=== PATIENT | female | born 1955 | race Caucasian/White ===

== ENCOUNTER 2020-01-15 15:00 | Emergency (ER) | payer OTHER, SELFPAY ==
[2020-01-15 15:06] VITALS: BP 156/84; PULSE 73; RESP 16; TEMP 36.7; O2SAT 95
[2020-01-15 15:30] LABS: Abs Immature Grans 0.01 10^3/uL (0.0-0.06); Absolute Basophil Count 0.02 10^3/uL (0.0-0.2); Absolute Eosinophil Count 0.05 10^3/uL (0.0-0.7); Absolute Lymphocyte Count 1.34 10^3/uL (1.2-3.4); Absolute Monocyte Count 0.47 10^3/uL (0.1-0.8); Absolute Neutrophil Count 3.81 10^3/uL (1.2-6.7); Basophils % 0.4; Eosinophils % 0.9; HCT 44.4 % (36.0-46.0); HGB 15.2 g/dL (11.2-15.7); Immature Grans % 0.2; Lymphocytes % 23.5; MCH 33.6 pg (27.0-33.0); MCHC 34.2 % (32.0-36.0); MPV 10.2 fL (8.0-11.0); Monocytes % 8.2; Neutrophils % 66.8; Nucleated RBC 0 %; Platelet Count 231 10^3/uL (130-400); RBC 4.53 10^6/uL (3.93-5.22); RDW 11.6 % (11.7-14.6); RDW-SD 41.9 fL
--- NOTE | 2020-01-15 15:52 | ED.GENADUL_ITS ---
Discharge Plan Disposition Patient Disposition: HOME Condition: Stable Discharge Details Chief Complaint: Nausea/Vomit/Diar Clinical Impression: Nausea Primary Care Provider: Sharon Delarosa ED Provider: Josi Cook Home Meds and New Rx's Prescriptions: New promethazine 25 mg tablet 25 mg PO TID PRN (Reason: nausea and vomiting) Qty: 10 RF: 0 No Action aspirin [Aspir-81] 81 MG tablet,delayed release (DR/EC) 1 tab PO DAILY RF: 0 triamterene-hydrochlorothiazid [Dyazide] 1 EACH capsule 1 cap PO DAILY RF: 0 estradiol 1 MG tablet 1 tab PO DAILY RF: 0 levothyroxine 125 MCG tablet 1 tab PO DAILY RF: 0 tiotropium bromide [Spiriva with HandiHaler] 30 CAP capsule, w/inhalation device 1 cap Inhalation DAILY RF: 0 L.acidoph, paracasei,B. lactis 1 EACH capsule 1 cap PO DAILY RF: 0 ondansetron HCl [Zofran] 4 mg Tablet 4 mg PO Q8H PRNRF: 0 Discharge Instructions Instructions: Acute Nausea and Vomiting (ED) Additional Instructions: Follow up with primary care provider in 3-5 days. Return to ED sooner if any worsening or concerns. Increase oral fluids. Take medications as prescribed. Stand Alone Forms: Work Release Referrals: Sharon Delarosa [Primary Care Provider] - Discharge Data Discharge Date/Time-TO BE ENTERED AT DEPARTURE: 01/15/20 16:45 Medical Decision Making <Josi Cook - Last Filed: 01/16/20 09:17> 64-year-old female presents to the ER with complaint of nausea since Tuesday. She has been intermittently getting Zofran from her place of work. She does have a history of a fundoplication done years ago for GERD. She denies any actual vomiting. Did have one episode of diarrhea on Tuesday. Denies any hematochezia. No fever no chills. No abdominal pain. Work-up was ordered including CBC and CMP which are largely within normal limits. Patient remained stable and afebrile throughout stay. She has no abdominal pain no chest pain no shortness of breath no complaints of fever or current diarrhea. Her only complaint at this time is nausea. At this time CT was not ordered due to patient's absence of pain or any concerning physical exam findings. Discussed this with patient and she agrees to not have a CT at this time. Patient was given 1 L normal saline, Zofran 4 mg IV, and 10 mg of Reglan IV in department prior to discharge. This improved her symptoms somewhat. Patient was given a prescription for 25 mg of Phenergan p.o. which patient states she has taken before and has helped. Discussed strict return instructions, verbalized understanding. Discussed to return if any onset of pain, worsening nausea vomiting, fever chills, diarrhea or any concerns. Patient verbalized understanding. <NATALIE Hinds - Last Filed: 01/22/20 16:56> my name was entered to the chart in error. HPI <Josi Cook - Last Filed: 01/16/20 09:17> General Mode of arrival: ambulatory . Date/Time Provider Initiated Documentation: 01/15/20 15:14 . Limitations to Documentation: no limitations . Information obtained by: patient . HPI Narrative: 64-year-old female presents to the ER with complaint of nausea since Tuesday. She has been intermittently getting Zofran from her place of work. She does have a history of a fundoplication done years ago for GERD. She denies any actual vomiting. Did have one episode of diarrhea on Tuesday. Denies any hematochezia. No fever no chills. No abdominal pain. Related Data Home Medications Medication Instructions Recorded Confirmed dominic Garnica B. lactis 1 cap PO DAILY 09/01/15 01/15/20 aspirin [Aspir 81] 1 tab PO DAILY 09/01/15 01/15/20 estradiol 1 tab PO DAILY 09/01/15 01/15/20 levothyroxine 1 tab PO DAILY 09/01/15 01/15/20 tiotropium bromide [Spiriva 1 cap INHALATION DAILY 09/01/15 09/01/15 Handihaler] triamterene-hydrochlorothiazid 1 cap PO DAILY 09/01/15 09/01/15 [Dyazide 37.5-25 Capsule] ondansetron HCl [Zofran] 4 mg PO Q8H PRN 01/15/20 01/15/20 promethazine 25 mg PO TID PRN #10 tab 01/15/20 Previous Rx's Medication Instructions Recorded promethazine 25 mg PO TID PRN #10 tab 01/15/20 Allergies Allergy/AdvReac Type Severity Reaction Status Date / Time lisinopril AdvReac Unknown Nausea Unverified 09/01/15 19:16 General Stated Complaint: Nausea/Vomit/Diar STEPHANIE: 4 Review of Systems <Josi Cook - Last Filed: 01/16/20 09:17> Narrative: Constitutional: Negative for weight loss, alert and oriented, well groomed, normal body habitus, appears comfortable. HEENT: Denies trauma, headaches, blurry vision, nasal discharge, sore throat, trouble swallowing. Chest: Denies chest pain, palpitations, irregular rhythm, hypertension. Respiratory: Denies Shortness of breath, cough, hemoptysis. GI: Denies abdominal pain, vomiting, constipation. Positive nausea since Tuesday, one episode of diarrhea. : Denies dysuria, hematuria, flank pain, rectal bleeding. Neuro: Denies dizziness, blurry vision, weakness, syncope, headache or facial numbness. Hematologic: Denies easy bruising, intolerance to heat or cold, hair loss. PFSH <Josi Cook - Last Filed: 01/16/20 09:17> Social History Smoking/Tobacco Use Status: Former Tobacco Use Alcohol Intake: never Drug use: Never Substance use type: does not use Do you feel safe at home: Yes Do you feel safe in your relationship?: Yes Exam <Josi Cook - Last Filed: 01/16/20 09:17> Narrative Exam Narrative: Constitutional: Alert and oriented x3. Appears stated age. Normal body habitus. Head: Normocephalic, no trauma. Eyes: Pupils PERRLA, Red reflex noted, EOM's intact. Eyelids symmetrical without lesions, discharge, or swelling. ENT: Bilateral TM's WNL, External ear normal to inspection, no mastoid TTP, swelling, or erythema, Nasal turbinates WNL, no nasal discharge. Normal dentition, Posterior pharynx WNL, no exudate. Chest: RRR, Normal S1, S2, distal pulses intact. Resp: Lungs clear to auscultation bilaterally, no wheezes, rales, or rhonchi. Abdominal: Soft nontender to palpation. Hyperactive bowel sounds all 4 quadrants. Musculoskeletal: Normal gait, 5/5 strength to all four extremities. Skin: No suspicious rashes or lesions. Capillary refill less than 2 sec. Neurologic: Cranial nerves II-XII intact. Alert and oriented x 3. DTR's intact. Hematologic/Lymphatic: No ecchymosis, no lymphadenopathy. Course <Josi Cook - Last Filed: 01/16/20 09:17> Vital Signs Vital signs: Vital Signs Temperature 36.7 C 01/15/20 15:06 Pulse 73 01/15/20 15:06 Respiratory Rate 16 01/15/20 15:06 Blood Pressure 156/84 H 01/15/20 15:06 Pulse Oximetry 95 01/15/20 15:06 Temperature 36.7 C 01/15/20 15:06 Pulse 73 01/15/20 15:06 Respiratory Rate 16 01/15/20 15:06 Respiratory Effort 01/15/20 15:10 Blood Pressure 156/84 H 01/15/20 15:06 Blood Pressure Position Sitting 01/15/20 15:06 Pulse Oximetry 95 01/15/20 15:06 Oxygen Delivery Method Room Air 01/15/20 15:06 Oxygen Flow Rate 0 01/15/20 15:06 Lab/Test Results Lab/Test Results: Laboratory Tests Range/Units 01/15/20 15:24 WBC (4.4-10.8) 10^3/uL 5.70 RBC (3.93-5.22) 10^6/uL 4.53 Hgb (11.2-15.7) g/dL 15.2 Hct (36.0-46.0) % 44.4 MCV (80-95) fL 98.0 H MCH (27.0-33.0) pg 33.6 H MCHC (32.0-36.0) % 34.2 RDW (11.7-14.6) % 11.6 L Plt Count (130-400) 10^3/uL 231 MPV (8.0-11.0) fL 10.2 Immature Gran % 0.2 Neutrophils % 66.8 Lymphocytes % 23.5 Monocytes % 8.2 Eosinophils % 0.9 Basophils % 0.4 Nucleated RBC % % 0 Absolute Neutrophils (1.2-6.7) 10^3/uL 3.81 Absolute Lymphocytes (1.2-3.4) 10^3/uL 1.34 Absolute Monocytes (0.1-0.8) 10^3/uL 0.47 Absolute Eosinophils (0.0-0.7) 10^3/uL 0.05 Absolute Basophils (0.0-0.2) 10^3/uL 0.02
[2020-01-15 15:57] LABS: ALT 24 U/L (14-59); AST 14 U/L (15-37); Albumin 3.6 g/dL (3.4-5.0); Alkaline Phosphatase 61 U/L (46-116); BUN 12 mg/dL (7-18); Bilirubin, Total 0.3 mg/dL (0.2-1.0); CREATININE 0.74 mg/dL (0.55-1.02); Chloride 101 mmol/L (98-107); Glucose 94 mg/dL (74-106); Potassium 3.5 mmol/L (3.5-5.1); Sodium 139 mmol/L (136-145)
[2020-01-15] MEDS: Ondansetron 4 MG/2 ML VIAL IVP (15:57)
[2020-01-15] MEDS: Metoclopramide 10 MG/2 ML VIAL IVP (16:31)
== END 2020-01-15 16:45 | disposition home or self-care (01) ==
PROVIDERS: Emergency Provider Registered Nurse Emergency; PCP Family Medicine
DX: R11.0 Nausea (principal)
CPT/HCPCS: 36415; 80053; 96374; 96375; 99284; 85025; 99283; J2405; J2765

== ENCOUNTER 2020-03-07 11:24 | Outpatient (CLI) | payer OTHER, SELFPAY ==
--- NOTE | 2020-03-07 | DI.RAD_ITS ---
EXAM: XR HIP LT COMPLETE AP PELVIS INDICATION: LT HIP PAIN M25.552. COMPARISON: No exams were available for comparison TECHNIQUE: 2D digital imaging was performed. FINDINGS: Hardware is noted from L4 through S1. There prominent enthesophytes at the iliac wings. There are l ucencies in both mary which could be related to previously existing hardware. There is mild bilatera l hip joint space narrowing. There is bilateral acetabular spurring. There is mild spurring at the greater trochanters. Degenerative changes are also noted at the SI joints. IMPRESSION: [id number] degenerative changes of the hips. DATA REPOSITORY: RADIATION DOSE DELIVERED:
== END 2020-03-07 11:44 ==
PROVIDERS: PCP Family Medicine; Visit Provider Family Medicine
DX: M16.0 Bilateral primary osteoarthritis of hip (principal)
CPT/HCPCS: 73502

== ENCOUNTER 2021-07-16 11:04 | Outpatient (CLI) | payer MEDICARE, OTHER, SELFPAY ==
[2021-07-16 11:19] VITALS: BP 168/89; PULSE 83; RESP 18; TEMP 36; O2SAT 96
--- NOTE | 2021-07-16 11:50 | PDOC.PAIN ---
Pain Clinic Procedure Note Procedure Note Procedure Note: LUMBAR / SACRAL TRANSFORAMINAL INJECTION RASHAD LEE has been referred to the [facility] for a left L5 transforaminal nerve root block and steroid injection. COMMENTS: I eveluated her in the office yesterday. Dx: Lumbosacral radiculopathy Pre-procedure pain VAS = 6/10 Patient was interviewed and the medical record reviewed. There were no medical, pharmacologic, radiographic or other structural contraindications to attempting fluoroscopically guided transforaminal nerve root block and epidural steroid injection. Risks and expected side effects as well as potential benefit of the procedure were reviewed and voiced concerns addressed. The printed consent form was signed and witnessed. Standard time-out procedure was performed. Patient was placed in the prone position on the fluoroscopy table and automated blood pressure cuff and pulse oximeter applied. Fluoroscopy was utilized to identify the left L5 neural foramen between L5 and S1. A skin alexi was made for the needle insertion site. A Chlorhexadine prep was carried out, and sterile drapes were applied. Local anesthesia was achieved in the skin and subcutaneous tissues. A 22 gauge 5 spinal needle was then inserted, advanced with fluoroscopic guidance into the neural foramen, confirmed on the lateral view. After negative aspiration, 2 ml of Omnipaque 240 was injected confirming position in A/P and lateral views. This showed a good spread of dye transforaminally into the epidural space. There was no vascular update with contrast injection under continuous fluoroscopy and digital substraction. 15 mg of Dexamethasone was injected, followed by 1 ml of 1% Xylocaine flush for the nerve root block, as well. There was no unusual discomfort expressed.The needle was withdrawn. The patient tolerated the procedure well. A Band-Aid was applied. Vital signs were stable throughout the procedure and were as recorded in nursing records. If given, dosages of intravenous drugs for anxiolysis and analgesia were documented in nursing records. Follow up plans and appointments were discussed. Post procedure instruction was given as documented in nursing records and patient was discharged in the care of an identified interstate bus driver. COMMENTS:Post-procedure pain VAS = 4/10, though she states that she is a lot better. Alfie Gusman DO, MPH [facility]-Pain Management [facility] CC: Sharon Delarosa
[2021-07-16] MEDS: Dexamethasone Sod. Phos./Pres-Free 10 MG/ML VIAL IJ (11:56)
[2021-07-16] MEDS: Omnipaque 240 MG/ML 50 ML BTL IJ (11:56)
[2021-07-16 11:57] VITALS: BP 151/71; PULSE 92; RESP 18; O2SAT 94
--- NOTE | 2021-07-16 12:00 | DI.RAD_ITS ---
Exam(s) XR PAIN CLINIC LUMBAR SP 2V EXAM: XR PAIN CLINIC LUMBAR SP 2V CLINICAL HISTORY: Dx: Lumbar Radiculopathy. TECHNIQUE: Fluoroscopy was provided for the referring physician for guidance with performing injecti on procedure. AP and lateral hard copy images. COMPARISON: No exams were available for comparison FINDINGS: Please see procedure note for details. Posterior fusion hardware is noted spanning L4 through S1. Fluoro time: 47.3 seconds RADIATION DOSE DELIVERED: carlito Harris= 23.99 mGy
== END 2021-07-16 11:05 | disposition home or self-care (01) ==
LOC: PC 11:04
PROVIDERS: PCP Family Medicine; Visit Provider Preventive Medicine Occupational Medicine
DX: M54.17 Radiculopathy, lumbosacral region (principal)
CPT/HCPCS: 64483; 72100; Q9967

== ENCOUNTER 2021-07-24 13:13 | Emergency (ER) | payer MEDICARE, OTHER, SELFPAY ==
[2021-07-24] VITALS (12 sets, daily range): BP systolic 149–183; BP diastolic 74–93; PULSE 72–88; RESP 9–21; TEMP 36.8–36.9; O2SAT 95–98
--- NOTE | 2021-07-24 13:15 | RT.EKG_ITS ---
APPROVED REPORT Exam: Resting ECG Reason for Exam: CHEST PAIN Patient Location: E HR:76 bpm ECG Measurements Heart Rate 76 AXIS FL 179 P 56 QRSd 105 QRS 26 QT 393 T 42 QTc 444 Conclusion Sinus rhythm...normal P axis, V-rate 60- 99 Ventricular premature complex...V complex w/ short R-R interval
--- OUTSIDE RECORDS SUMMARY | 2021-07-24 13:20 | XMS_ITS | CCD ---
:1955 Author Care Team Providers Name Role Phone MD YANIV Attending Physician Unavailable Vital Signs Unknown or Not Available. Allergies Allergy Code Allergy Type Reaction Status LYRICA 325634 Drug allergy MEMORY LOSS Active GABAPENTIN 50495 Drug allergy LETHARGY; SLEEP INCREASE Act jorge Procedures Unknown or Not Available. History of Immunizations Unknown or Not Available. Problems Unknown or Not Available. Results Unknown or Not Available. Active Medications Unknown or Not Available. Medications Administered During Visit Unknown or Not Available. Encounters Encounter Diagnosis Diagnosis Code Start Date Low back pain [id number] 12/08/2020 Social History Smoking Status Code Start Date End Date Former smoker [id number] 05/16/1972 12/15/2012 Patient Decision Aids Unknown or Not Available. Discharge Instructions You were admitted to [facility] on 12/08/2020 14:29 with a principal diagnosis of Low back pain You were discharged from [facility] on 12/08/2020 14:30 Should you have any questions prior to d ischarge, please contact a member of your healthcare team. If you have left the spital and have any questions, please contact your primary care physician. Chief Complaint and Reason For Visit Unknown or Not Available. Function Status Unknown or Not Available. Plan of Care Unknown or Not Available. Referral/Transition of Care Unknown or Not Available.
--- NOTE | 2021-07-24 13:30 | DI.CT_ITS ---
Exam(s) CT BRAIN NECK CTA EXAM: CT BRAIN NECK CTA CLINICAL HISTORY: sob, R neck pain, upper back pain. TECHNIQUE: Imaging Protocol: Axial CT angiography was performed with multi-slice acquisition and mu lti-planar and/or 3D reconstructions. CONTRAST MATERIAL: Intravenous: Omnipaque 350 Contrast volume:structured data in ml COMPARISON: No exams were available for comparison FINDINGS: CTA Neck W: Aortic arch anatomy: No evidence of significant stenosis at the origin the great vessels off the aort ic arch Anterior circulation: Both common carotid arteries ascend with normal luminal diameters. There is no significant atheroscl erotic disease-stenosis at the carotid bifurcations and proximal internal carotid arteries. The uppe r internal carotid arteries in the neck are mild tortuous but patent. . internal carotid arteries are patent in the skull base-carotid canals. Posterior circulation: Both vertebral arteries originate off the subclavian arteries. No stenosis at the origin of the righ t vertebral artery. Left vertebral artery origin is difficult to assess. The right vertebral artery is dominant. Both are patent in the foramen transverse area with no evidence of intraluminal thromb us nor dissection. Both vertebral arteries contribute to the formation of the basilar artery at the skull base. CTA Brain W: Anterior circulation: Both internal carotid arteries are patent in the skull base carotid canals as well as within the cave rnous sinuses. Supraclinoid aspects of the internal carotid arteries are patent and nonaneurysmal. A1 segments are patent with the left being dominant. Anterior cerebral arteries are patent. There i s no aneurysm at the level of the anterior communicating artery. Both middle cerebral arteries appear patent Posterior circulation: Basilar artery is formed by both vertebral arteries and ascends with normal luminal diameter. Distal ly gives off patent superior cerebellar arteries and above this level terminates as patent bilateral posterior cerebral arteries. There is no evidence of aneurysm of the tip of the basilar artery nor e lsewhere in the [id number] CT BRAIN: There is no evidence of intracranial hemorrhage, mass effect, or shift of midline structures. There are no extra-axial fluid collections. Ventricles are not enlarged or shifted. There are no ring enh ancing lesions in the brain and no abnormal meningeal enhancement. IMPRESSION: 1. Patent carotid arteries and vertebral arteries in the neck. No significant stenosis nor dissectio n. 2. Patent intracranial arteries. No intraluminal thrombus. No tight stenosis. No aneurysms. 3. No acute intracranial findings. No ring enhancing lesions in the brain. No evidence of intracr anial hemorrhage. RADIATION DOSE DELIVERED: 1,977.8mGy.cm Total DLP DATA REPOSITORY: All CT scans at this facility are submitted to the National Radiology Data Registry (NRDR) Dose Index Registry (DIR) with the [employer] (ACR). RADIATION OPTIMIZATION: All CT scans at this facility use at least one of these dose optimization te chniques: automated exposure control; mA and/or kV adjustment per patient size (includes targeted exa ms where dose is matched to clinical indication); or iterative reconstruction.
--- NOTE | 2021-07-24 13:30 | DI.CT_ITS ---
Exam(s) CT CHEST PE CTA EXAM: CT CHEST PE CTA CLINICAL HISTORY: sob, back pain, R neck pain. TECHNIQUE: Imaging Protocol: CT angiography of the chest was performed using pulmonary embolus imani col. Multi planar reconstructions were performed. CONTRAST MATERIAL: Intravenous: Omnipaque 350 Contrast volume: 100 cc COMPARISON: CT CT BRAIN NECK CTA from 07/24/2021 FINDINGS: CHEST: PULMONARY ARTERIES: This study is positive for pulmonary embolus in the right lung. Intraluminal penny ling defect evident within 3 right lower lobe pulmonary arteries as well as the right middle lobe ves benigno. No obvious intraluminal filling defects in left pulmonary arteries. No evidence of central nor saddle embolus. LUNGS: Mild infiltrate in the lingular segment of the left lung. No confluent right lung infiltrate. No pulmonary infarction. No pleural effusions. No ominous pulmonary nodules. No significant foca l findings in the trachea and mainstem bronchi.. MEDIASTINUM: There is no hilar nor mediastinal adenopathy. Visualized thyroid unremarkable. CARDIAC: Heart size is upper normal. There is no pericardial effusion.Caliber of the thoracic aorta is within normal limits. There is no significant shift of the interventricular septum. PARTIALLY VISUALIZED UPPERMOST ABDOMEN: No obvious findings OSSEOUS: No significant osseous lesions.No fractures. IMPRESSION: 1. Positive study..There are intraluminal filling defects consistent with acute pulmonary emboli evid ent in the right lower lobe and right middle lobe vessels. No pulmonary infarction evident. 2. No obvious emboli in the opposite-left lung although there is some mild infiltrate in the lingular segment of the left lung. 3. There are no pleural effusions nor pericardial effusion. No aortic dissection. No shift of the i nterventricular septum. Report called by myself to ER provider. RADIATION DOSE DELIVERED: 392.05mGy.cm Total DLP DATA REPOSITORY: All CT scans at this facility are submitted to the National Radiology Data Registry (NRDR) Dose Index Registry (DIR) with the [employer] (ACR). RADIATION OPTIMIZATION: All CT scans at this facility use at least one of these dose optimization te chniques: automated exposure control; mA and/or kV adjustment per patient size (includes targeted exa ms where dose is matched to clinical indication); or iterative reconstruction.
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
[2021-07-24 13:41] LABS: Absolute Basophil Count 0.04 10^3/uL (0.0-0.2); Absolute Eosinophil Count 0.09 10^3/uL (0.0-0.7); Absolute Lymphocyte Count 1.99 10^3/uL (1.2-3.4); Absolute Monocyte Count 0.61 10^3/uL (0.1-0.8); Absolute Neutrophil Count 5.25 10^3/uL (1.2-6.7); Basophils % 0.5; Eosinophils % 1.1; HGB 14.9 g/dL (11.2-15.7); Immature Grans % 1.2; Lymphocytes % 24.6; MCH 32.8 pg (27.0-33.0); MCHC 33.1 % (32.0-36.0); MCV 99.1 fL (80-95); MPV 9.8 fL (8.0-11.0); Monocytes % 7.5; Neutrophils % 65.1; Nucleated RBC 0 %; Platelet Count 253 10^3/uL (130-400); RBC 4.54 10^6/uL (3.93-5.22); RDW 12.4 % (11.7-14.6); RDW-SD 45.7 fL; WBC 8.08 10^3/uL (4.4-10.8)
[2021-07-24 13:45] LABS: Source Nasal/Nares
--- NOTE | 2021-07-24 14:00 | DI.US_ITS ---
Exam(s) US LOWER EXTREMITY VENOUS LT EXAM: US LOWER EXTREMITY VENOUS LT CLINICAL HISTORY: pain/no trauma TECHNIQUE: Grayscale, color, and doppler imaging of the deep venous system of the left lower extremi ty was performed. COMPARISON: No exams were available for comparison FINDINGS: There is no evidence of intraluminal thrombus and there is normal compression and augmentation demons trated within the common femoral vein, femoral vein, and popliteal vein. In the ipsilateral calf the interrogated veins also exhibit normal compression/ augmentation properti es. The ipsilateral saphenofemoral junction is patent. IMPRESSION: 1. No evidence of DVT in the left lower extremity. Incidentally noted is a Hamilton cyst in the popliteal fossa. This measures approximately 4.5 x 3.7 x 0 .7 cm DATA REPOSITORY:
[2021-07-24 14:03] LABS: PTT Activated 22.6 sec (21.0-27.5); Prothrombin Time 9.9 sec (9.3-11.0)
[2021-07-24 14:06] LABS: ALT 16 U/L (14-59); AST 14 U/L (15-37); Albumin 3.7 g/dL (3.4-5.0); Alkaline Phosphatase 78 U/L (46-116); Anion Gap 7.6 mmol/L (3-11); BUN 15 mg/dL (7-18); Bilirubin, Total 0.4 mg/dL (0.2-1.0); CO2 27.4 mmol/L (21.0-32.0); CREATININE 0.8 mg/dL (0.55-1.02); Calcium 9.1 mg/dL (8.5-10.1); Chloride 102 mmol/L (98-107); Glucose 106 mg/dL (74-106); Magnesium 2.1 mg/dL (1.8-2.4); NT-proBNP 30 pg/mL (<300); Potassium 4.3 mmol/L (3.5-5.1); Sodium 137 mmol/L (136-145); Total Protein 7.1 g/dL (6.4-8.2); Troponin I < 50 ng/L (<or=60)
[2021-07-24 14:22] LABS: D-Dimer 1095 ng/mlFEU (<500)
[2021-07-24 14:43] LABS: TSH (W/Ref FT4) 1.55 uIU/mL (0.36-3.74)
[2021-07-24 15:01] LABS: COVID-19 PCR Negative (Negative)
[2021-07-24] MEDS: Omnipaque 350 MG/ML 100 ML BTL IJ (15:03)
--- NOTE | 2021-07-24 16:15 | RT.EKG_ITS ---
APPROVED REPORT Exam: Resting ECG Reason for Exam: REPEAT Patient Location: E HR:78 bpm ECG Measurements Heart Rate 78 AXIS IN 194 P 55 QRSd 106 QRS 31 QT 371 T 35 QTc 430 Conclusion Sinus rhythm...normal P axis, V-rate 60- 99 Multiple ventricular premature complexes...V complexes w/ short R-R intervls Physician: no stemi, pvc noted
[2021-07-24 16:48] LABS: Troponin I < 50 ng/L (<or=60)
[2021-07-24] MEDS: Apixaban 5 MG TAB 10 MG PO (17:18)
== END 2021-07-24 17:25 | disposition home or self-care (01) ==
PROVIDERS: Emergency Provider Physician Assistant; PCP Family Medicine
DX: I26.99 Other pulmonary embolism without acute cor pulmonale (principal); R07.9 Chest pain, unspecified; R06.02 Shortness of breath; I10 Essential (primary) hypertension; M54.2 Cervicalgia; M54.9 Dorsalgia, unspecified
CPT/HCPCS: 36415; 70496; 70498; 71275; 80053; 87635; 93005; 99285; 83735; 83880; 84443; 84484; 85025; 85379; 85610; 85730; 93010; 93971; J3490

== ENCOUNTER 2021-08-25 01:40 | Outpatient (CLI) | payer MEDICARE, OTHER, SELFPAY ==
--- NOTE | 2021-08-25 13:00 | DI.US_ITS ---
Exam(s) US PAIN CLINIC NEEDLE GUIDANCE EXAM: LT ILIOINGUINAL NEURALGIA, G57.92, LUMBOSACRAL RADICULOPATHY, M54.7 COMPARISON: No exams were available for comparison TECHNIQUE: Ultrasound performed using standard protocol. FINDINGS: Sonography was provided for Dr. Gusman during the performance of a trigger point injection. Please re foreign to the procedure report for complete details. DATA REPOSITORY:
[2021-08-25 13:02] VITALS: BP 141/88; PULSE 82; RESP 20; TEMP 36.6; O2SAT 96
--- NOTE | 2021-08-25 13:38 | PDOC.PAIN ---
Pain Clinic Procedure Note Procedure Note Procedure Note: ULTRASOUND GUIDED LEFT ILIOINGUINAL NERVE BLOCK Pre-Procedural Evaluation: Manasa Robles has been referred to the Pain Management Center for an Ultrasound Guided LEFT ILIOINGUINAL NERVE BLOCK injection for a chief complaint of LEFT GROIN PAIN. Pre-procedure Pain Score: 6/10 Patient was interviewed and the medical record reviewed. There were no medical, pharmacologic, radiographic, or other structural contraindications to preforming an ultrasound guided injection. Risks and expected side effects as well as potential benefits of the procedure were reviewed. The patient consent form was signed and witnessed. Standard time-out procedure was performed. The use of direct ultrasound visualization of the needle (rather than a non-guided injection) was required to increase patient safety by excluding inadvertent intramuscular, intratendinous, or intraneural needle placement and minimizing bleeding by avoiding osteochondral or vascular injury from the needle. Additionally, the increased accuracy of placement may increase clinical effectiveness and will allow higher diagnostic specificity when evaluating effectiveness of this injection. Procedure Description: The patient was placed in the Prone position and automated blood pressure cuff and pulse oximeter applied for monitoring during the procedure and recorded in the medical record. Pre-injection ultrasound scanning of the area of interest was performed using curvilinear transducer, identifying relevant anatomy, landmarks, and neurovascular structures allowing for optimal needle path. The site was then prepared in the usual sterile fashion, using thorough Chlorhexadine preparation of the skin and sterile draping. The same ultrasound transducer was then passed into the sterile field using sterile probe cover and sterile ultrasound gel. The injection target was again visualized. Skin and subcutaneous tissues were anesthetized with 2 mL of 1% Lidocaine. A 21G Pajunk 3.5 ultrasound needle was placed under live ultrasound guidance, using an in-plane approach, to the target area. After visualization of the needle tip at the target area, 1 cc of Dexamethasone (10 mg/cc) followed by 4 cc of Bupivacaine was delivered after negative aspiration for blood. Ultrasound images were captured and stored for documentation purposes. Post-procedure Pain Score:0/10 Vital signs were stable throughout the procedure and were as recorded in the docflowsheet by the nursing staff. Follow up plans and appointments were discussed with the patient.Post procedure instruction was given as documented in nursing documentation and having met discharge criteria, they were discharged from the Pain Management Center. COMMENTS: She did have some left leg weakness after the procedure and we watched her for 120 minutes after the procedure. She was transferred via a wheelchair to an examination room. She was ambulatory with assistance at discharge. Alfie Gusman DO, MPH [facility]-Pain Management [facility]-Center for Pain Management
[2021-08-25 13:47] VITALS: PULSE 81; O2SAT 96
== END 2021-08-25 02:00 ==
PROVIDERS: PCP Family Medicine; Visit Provider Preventive Medicine Occupational Medicine
DX: R10.30 Lower abdominal pain, unspecified (principal)
CPT/HCPCS: 64425; 76942

== ENCOUNTER 2021-08-26 12:03 | Emergency (ER) | payer MEDICARE, OTHER, SELFPAY ==
[2021-08-26] VITALS (11 sets, daily range): BP systolic 134–162; BP diastolic 75–77; PULSE 84–87; RESP 16; TEMP 37; O2SAT 94–96
--- NOTE | 2021-08-26 13:00 | DI.CT_ITS ---
Exam(s) CT ABDOMEN PELVIS W EXAM: CT ABDOMEN PELVIS W CLINICAL HISTORY: Ilioinguinal block, concern for hematoma. TECHNIQUE: Imaging Protocol: Axial computed tomography images with coronal and sagittal reformatted images were created and reviewed CONTRAST MATERIAL: Intravenous: Omnipaque 350 Contrast volume:100 ml Oral: no COMPARISON: CT CT CHEST PE CTA from 07/24/2021 FINDINGS: ABDOMEN: Lung Bases: Lung normal where visualized. Small hiatal hernia. Liver: Normal density. No measurable mass. Gallbladder and biliary tract: Status post cholecystectomy. No radiodense calculus or dilation. Pancreas: Normal density, no abnormal calcifications or inflammatory process. Spleen: Normal. Kidneys: Normal size, contour and axis. No radiodense stones or obstructive uropathy. No masses seen. Retroaortic left renal vein. Adrenal glands: No masses seen. Abdominal Aorta: Abdominal portion non-dilated. PELVIS: Bladder: No gross wall thickening. No calculi.No focal mass. Bowel: No obstruction or bowel wall thickening. Appendix normal. Peritoneal cavity: No ascites, collection or mesenteric inflammatory response. Soft tissues: Strandin g in the anterior soft tissues but no evidence of focal drainable fluid collection or hematoma. Bones: Left hip prosthesis creates artifact. Posterior fusion L4 through S1 with L4-5 and L5-S1 disc spacers. Reproductive organs: Within normal limits. Lymph nodes: Unremarkable. Impression: Left inguinal soft tissue stranding. No fluid collection or hematoma. RADIATION DOSE DELIVERED: 1,220.32mGy.cm Total DLP DATA REPOSITORY: All CT scans at this facility are submitted to the National Radiology Data Registry (NRDR) Dose Index Registry (DIR) with the [employer] (A[employer]). RADIATION OPTIMIZATION: All CT scans at this facility use at least one of these dose optimization te chniques: automated exposure control; mA and/or kV adjustment per patient size (includes targeted exa ms where dose is matched to clinical indication); or iterative reconstruction.
--- NOTE | 2021-08-26 13:06 | ED.GENADUL_ITS ---
Discharge Plan Disposition Patient Disposition: HOME Condition: Stable Discharge Details Clinical Impression: Left leg weakness Primary Care Provider: Yoandy Whaley ED Provider: Chong Mojica Home Meds and New Rx's Prescriptions: Continued gabapentin 300 mg capsule 600 mg PO TID 0RF oxycodone 5 mg tablet 5 mg PO BID PRN0RF Victoza 3-Keshawn 0.6 mg/0.1 mL (18 mg/3 mL) pen injector 0.6 mg subcut DAILY 0RF estradiol 1 mg tablet 1 mg PO DAILY 0RF Rx Instructions: off 1 week; repeat cycle levothyroxine 125 mcg tablet 125 mcg PO DAILY 0RF triamterene-hydrochlorothiazid 37.5-25 mg tablet 1 tab PO DAILY 0RF pantoprazole 40 mg tablet,delayed release (DR/EC) 40 mg PO DAILY 0RF famotidine 20 mg tablet 20 mg PO DAILY PRN0RF ibuprofen [Wal-Profen] 200 mg tablet 200 mg PO TID PRN0RF ondansetron 4 mg tablet,disintegrating 4 mg PO DAILY 0RF acetaminophen 500 mg capsule 500 mg PO Q6H PRN0RF meclizine 25 mg tablet,chewable 25 mg PO DAILY PRN0RF alpha lipoic acid 300 mg capsule 300 mg PO DAILY 0RF Eliquis DVT-PE Treat 30D Start 5 mg (74 tabs) tablets,dose pack See Rx Instructions .ROUTE .COMPLEX Qty: 74 0RF Rx Instructions: orally per package directions Discharge Instructions Additional Instructions: It would appear as though you had an unfortunate complication of the ilioinguinal nerve block performed yesterday. Fortunately, there is no evidence of an expanding hematoma via CT. I personally spoke Dr. Dean, who also evaluated you in the ER, and she feels as though you can be safely discharged home where you are currently using a walker. She will have the pain clinic check in on you over the next 24-48 hours if symptoms are persisting then they will set up a dedicated reevaluation appointment with you and the pain clinic. Please watch for new or worsening symptoms and return to the ER for any concerns. Medical Decision Making 66-year-old female who had an ilioinguinal nerve block performed yesterday [facility] for ongoing leg altered sensation and weakness, sent to the ER for evaluation of CT imaging to rule out expanding hematoma. Otherwise asymptomatic and neurologically intact except for the left lower extremity. I was able to discuss the case with Dr. Dean, pain clinic, who was able to come personally evaluate the patient. After evaluation, she questions if the initial block may have inadvertently affected the femoral nerve. She believes if the CT is unremarkable for hematoma the patient can be safely discharged and the patient will likely see improvement of her symptoms over the next 24-48 hours. She will have the pain clinic reach out to the patient in that time and if she remains symptomatic we will then set up an outpatient appointment to address her ongoing symptoms. CT revealed stranding but no evidence of hematoma. Clinically I see no evidence of cellulitis, stranding likely secondary to the block yesterday. Case once again discussed with Dr. Dean, will not initiate antibiotic therapy at this time, and she will be happy to follow the patient as an outpatient to the pain clinic. This plan was discussed with the patient. She has no additional questions or concerns and is comfortable with discharge. She has a walker at home. Strict discharge and return precautions were provided This documentation was generated using GroundedPoweration system, please disregard any oddities of phrase or misspellings. Medical Records Medical records reviewed: Yes I reviewed the patient's medical records. Imaging Data Radiologic Study: Attestation: I personally reviewed and interpreted this imaging study as follows: Imaging: CT Scan Radiologist's impression: Exam(s) CT ABDOMEN PELVIS W EXAM: CT ABDOMEN PELVIS W CLINICAL HISTORY: Ilioinguinal block, concern for hematoma. TECHNIQUE: Imaging Protocol: Axial computed tomography images with coronal and sagittal reformatted images were created and reviewed CONTRAST MATERIAL: Intravenous: Omnipaque 350 Contrast volume:100 ml Oral: no COMPARISON: CT CT CHEST PE CTA from 07/24/2021 FINDINGS: ABDOMEN: Lung Bases: Lung normal where visualized. Small hiatal hernia. Liver: Normal density. No measurable mass. Gallbladder and biliary tract: Status post cholecystectomy. No radiodense calculus or dilation. Pancreas: Normal density, no abnormal calcifications or inflammatory process. Spleen: Normal. Kidneys: Normal size, contour and axis. No radiodense stones or obstructive uropathy. No masses seen. Retroaortic left renal vein. Adrenal glands: No masses seen. Abdominal Aorta: Abdominal portion non-dilated. PELVIS: Bladder: No gross wall thickening. No calculi.No focal mass. Bowel: No obstruction or bowel wall thickening. Appendix normal. Peritoneal cavity: No ascites, collection or mesenteric inflammatory response. Soft tissues: Stranding in the anterior soft tissues but no evidence of focal drainable fluid collection or hematoma. Bones: Left hip prosthesis creates artifact. Posterior fusion L4 through S1 with L4-5 and L5-S1 disc spacers. Reproductive organs: Within normal limits. Lymph nodes: Unremarkable. Impression: Left inguinal soft tissue stranding. No fluid collection or hematoma. Lab Data Lab results reviewed: Yes I reviewed the patient's lab results. Labs: Laboratory Tests Range/Units 08/26/21 08/26/21 12:55 12:55 WBC (4.4-10.8) 10^3/uL 11.67 H RBC (3.93-5.22) 10^6/uL 4.25 Hgb (11.2-15.7) g/dL 13.9 Hct (36.0-46.0) % 41.6 MCV (80-95) fL 97.9 H MCH (27.0-33.0) pg 32.7 MCHC (32.0-36.0) % 33.4 RDW (11.7-14.6) % 11.6 L Plt Count (130-400) 10^3/uL 271 MPV (8.0-11.0) fL 10.3 Immature Gran % 0.8 Neutrophils % 80.0 Lymphocytes % 11.7 Monocytes % 7.2 Eosinophils % 0.1 Basophils % 0.2 Nucleated RBC % % 0 Absolute Neutrophils (1.2-6.7) 10^3/uL 9.34 H Absolute Lymphocytes (1.2-3.4) 10^3/uL 1.37 Absolute Monocytes (0.1-0.8) 10^3/uL 0.84 H Absolute Eosinophils (0.0-0.7) 10^3/uL 0.01 Absolute Basophils (0.0-0.2) 10^3/uL 0.02 Sodium (136-145) mmol/L 137 Potassium (3.5-5.1) mmol/L 3.5 Chloride (98-107) mmol/L 102 Carbon Dioxide (21.0-32.0) mmol/L 28.5 Anion Gap (3-11) mmol/L 6.5 BUN (7-18) mg/dL 15 Creatinine (0.55-1.02) mg/dL 0.8 Estimated GFR/1.73 m2 (mL/min/1.73m2) >= 60.00 Glucose (74-106) mg/dL 133 H Calcium (8.5-10.1) mg/dL 9.0 Total Bilirubin (0.2-1.0) mg/dL 0.2 AST (15-37) U/L 10 L ALT (14-59) U/L 19 Alkaline Phosphatase (46-116) U/L 89 Total Protein (6.4-8.2) g/dL 7.1 Albumin (3.4-5.0) g/dL 3.4 HPI General Mode of arrival: wheelchair . Date/Time Provider Initiated Documentation: 08/26/21 12:07 . Limitations to Documentation: no limitations . Information obtained by: patient . HPI Narrative: 66-year-old female who had an ileoinguinal block performed yesterday by pain clinic, reports continuation of altered leg sensation and weakness since the procedure. She contacted the pain clinic and they recommended coming to the ER for CT imaging to rule out expanding hematoma. Patient otherwise has no acute concerns or complaints. She states that she is otherwise healthy. Denies recent illness or trauma, headache visual changes, fever, neck pain, facial asymmetry or weakness, numbness, tingling, weakness in her upper extremities or right lower extremity. Patient denies any pain or swelling in her left lower extremity. She states that the symptoms began directly after the ilioinguinal block. She is able to ambulate safely using a walker. Patient is on Eliquis for recently diagnosed PE Related Data Home Medications Medication Instructions Recorded Confirmed acetaminophen 500 mg capsule 500 mg PO Q6H PRN 07/10/21 08/26/21 alpha lipoic acid 300 mg capsule 300 mg PO DAILY 07/10/21 08/26/21 estradiol 1 mg tablet 1 mg PO DAILY 07/10/21 08/26/21 famotidine 20 mg tablet 20 mg PO DAILY PRN 07/10/21 08/26/21 gabapentin 300 mg capsule 600 mg PO TID cap 07/10/21 08/26/21 ibuprofen 200 mg tablet 200 mg PO TID PRN tab 07/10/21 08/26/21 (Brooklynn-Mando) levothyroxine 125 mcg tablet 125 mcg PO DAILY 07/10/21 08/26/21 liraglutide 0.6 mg/0.1 mL (18 mg/3 0.6 mg SUBCUT DAILY 07/10/21 08/26/21 mL) subcutaneous pen injector (Victoza 3-Keshawn) meclizine 25 mg chewable tablet 25 mg PO DAILY PRN 07/10/21 08/26/21 ondansetron 4 mg disintegrating 4 mg PO DAILY tab 07/10/21 08/26/21 tablet oxycodone 5 mg tablet 5 mg PO BID PRN 07/10/21 08/26/21 pantoprazole 40 mg tablet,delayed 40 mg PO DAILY 07/10/21 08/26/21 release triamterene 37.5 1 tab PO DAILY 07/10/21 08/26/21 mg-hydrochlorothiazide 25 mg tablet apixaban 5 mg (74 tabs) tablets in See Rx Instructions .ROUTE 07/24/21 08/26/21 a dose pack (Eliquis DVT-PE Treat .COMPLEX #74 dose pk 30D Start) Previous Rx's Medication Instructions Recorded apixaban 5 mg (74 tabs) tablets in See Rx Instructions .ROUTE 07/24/21 a dose pack (Eliquis DVT-PE Treat .COMPLEX #74 dose pk 30D Start) Allergies Allergy/AdvReac Type Severity Reaction Status Date / Time acetaminophen [From Vicodin] AdvReac Unknown Nausea and Unverified 08/25/21 12:58 Vomiting gabapentin AdvReac Unknown Sleep Unverified 08/25/21 12:58 Increase hydrocodone [From Vicodin] AdvReac Unknown Nausea and Unverified 08/25/21 12:58 Vomiting pregabalin [From Lyrica] AdvReac Unknown Memory Loss Unverified 08/25/21 12:58 General Stated Complaint: Vascular STEPHANIE: 3 Review of Systems Constitutional Constitutional: Denies fever(s) and Reports weakness Cardiovascular Cardiovascular: Denies chest pain Musculoskeletal Musculoskeletal: Denies arthralgias, Reports numbness, Denies stiffness and Reports tingling Integumentary/Breasts Skin/Breast: Denies rash Neurologic Neurologic: Reports numbness, Reports tingling and Reports weakness PFSH All Active Problems Left leg weakness (Acute) Ilioinguinal neuralgia of left side (Acute) Lumbosacral radiculopathy at L5 (Acute) Medical History Abdominal pain Carpal tunnel syndrome Chronic pain COPD (chronic obstructive pulmonary disease) Degenerative disc disease, cervical Depression Effusion of metatarsophalangeal (MTP) joint of great toe Frequent PVCs GERD (gastroesophageal reflux disease) History of smoking Hot flashes HTN (hypertension) Hypercholesterolemia Hypothyroidism Idiopathic peripheral neuropathy Left hip pain Lumbosacral radiculopathy Meralgia paresthetica of left side Microalbuminuria Migraine DAREN (obstructive sleep apnea) Osteoarthritis Pain in joint, foot, left Pre-diabetes Spinal stenosis, lumbar Spondylolisthesis, lumbar region Trochanteric bursitis of left hip Urgency of urination Urinary frequency UTI (urinary tract infection) Vitamin D deficiency Surgical History H/O spinal fusion L4-5 H/O total hip arthroplasty Left H/O: hysterectomy History of Martina fundoplication History of total knee arthroplasty left Hx of cholecystectomy Family History Father No problems noted. Mother No problems noted. 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 Do you feel safe at home: Yes Do you feel safe in your relationship?: Yes Exam Const General: cooperative, healthy appearing, comfortable and no acute distress Orientation: alert and awake [facility] Head: normal to inspection, normocephalic and atraumatic Face and sinus: normal facial exam Mouth: moist mucous membranes Eyes General: appearance normal, both eyes and all related structures Conjunctivae: conjunctivae normal Neck Neck: normal visual inspection, full ROM, no meningeal signs, trachea midline and supple Resp Effort & Inspection: normal respiratory effort and able to speak in complete sentences Auscultation: clear to auscultation bilaterally Cardio Rate: regular rate Rhythm: regular rhythm GI Palpation: soft and nontender Back/Spine/Pelvis Back: no CVA tenderness and No back tenderness Skin General skin exam: no rashes or lesions noted Neuro General: patient alert, patient awake, patient oriented x3 and moves all extremities Cognition: normal cognition Speech: speech normal Extrem General: capillary refill normal Other: Bilateral upper extremities and right lower extremity unremarkable. Physical examination of the left lower extremity is unremarkable. Normal pedal pulse and capillary refill. Patient has normal sensation to the lateral and posterior aspect of her left leg as well as her third, fourth, fifth digits. Patient is able to wiggle her toes but has limited dorsi extension of her great toe. Patient is able to nearly flex her left knee but has limited extension at her knee and at her hip. Is able to internally and externally rotate. In the distribution of the medial and anterior aspect of the leg she does have altered her limited sensation as well as inability of two-point discrimination Psych Appearance: grossly normal Mental Status: mental status grossly normal Course Vital Signs Vital signs: Vital Signs Temperature 37 C 08/26/21 12:04 Pulse 87 08/26/21 12:04 Respiratory Rate 16 08/26/21 12:04 Blood Pressure 162/76 H 08/26/21 12:04 Pulse Oximetry 96 08/26/21 12:04 Temperature 37 C 08/26/21 12:04 Temperature Source Skin 08/26/21 12:04 Pulse 87 08/26/21 12:04 Respiratory Rate 16 08/26/21 12:04 Respiratory Effort 08/26/21 12:37 Respiratory Depth Normal 08/26/21 12:32 Respiratory Pattern Normal 08/26/21 12:32 Blood Pressure 162/76 H 08/26/21 12:04 Pulse Oximetry 96 08/26/21 12:04 Oxygen Delivery Method Room Air 08/26/21 12:04 Oxygen Flow Rate 0 08/26/21 12:04 Pain Level 0 08/26/21 12:04
[2021-08-26 13:09] LABS: Abs Immature Grans 0.09 10^3/uL (0.0-0.06); Absolute Basophil Count 0.02 10^3/uL (0.0-0.2); Absolute Eosinophil Count 0.01 10^3/uL (0.0-0.7); Absolute Lymphocyte Count 1.37 10^3/uL (1.2-3.4); Absolute Monocyte Count 0.84 10^3/uL (0.1-0.8); Absolute Neutrophil Count 9.34 10^3/uL (1.2-6.7); Basophils % 0.2; Eosinophils % 0.1; HCT 41.6 % (36.0-46.0); HGB 13.9 g/dL (11.2-15.7); Immature Grans % 0.8; Lymphocytes % 11.7; MCH 32.7 pg (27.0-33.0); MCHC 33.4 % (32.0-36.0); MCV 97.9 fL (80-95); MPV 10.3 fL (8.0-11.0); Monocytes % 7.2; Nucleated RBC 0 %; Platelet Count 271 10^3/uL (130-400); RBC 4.25 10^6/uL (3.93-5.22); RDW 11.6 % (11.7-14.6); RDW-SD 41.8 fL; WBC 11.67 10^3/uL (4.4-10.8)
[2021-08-26 13:18] LABS: ALT 19 U/L (14-59); AST 10 U/L (15-37); Albumin 3.4 g/dL (3.4-5.0); Alkaline Phosphatase 89 U/L (46-116); Anion Gap 6.5 mmol/L (3-11); BUN 15 mg/dL (7-18); Bilirubin, Total 0.2 mg/dL (0.2-1.0); CO2 28.5 mmol/L (21.0-32.0); CREATININE 0.8 mg/dL (0.55-1.02); Chloride 102 mmol/L (98-107); Glucose 133 mg/dL (74-106); Potassium 3.5 mmol/L (3.5-5.1); Sodium 137 mmol/L (136-145); Total Protein 7.1 g/dL (6.4-8.2)
[2021-08-26] MEDS: Omnipaque 350 MG/ML 100 ML BTL IV (13:32)
== END 2021-08-26 14:55 | disposition home or self-care (01) ==
PROVIDERS: Emergency Provider Physician Assistant; PCP Family Medicine
DX: M62.81 Muscle weakness (generalized) (principal); R20.2 Paresthesia of skin; G58.8 Other specified mononeuropathies
CPT/HCPCS: 36415; 80053; 99285; 74177; 85025; 99283; J3490

== ENCOUNTER 2021-10-28 10:32 | Outpatient (CLI) | payer MEDICARE, OTHER, SELFPAY ==
--- NOTE | 2021-10-28 06:00 | DI.RAD_ITS ---
Exam(s) XR PAIN CLINIC SACRIOILIAC 2V EXAM: XR PAIN CLINIC SACRIOILIAC 2V CLINICAL HISTORY: Dx: Sacroiliac Joint Dysfunction TECHNIQUE: 2D and realtime digital imaging was performed. Radiologist not present. CONTRAST MATERIAL: None. COMPARISON: No exams were available for comparison FINDINGS: Fluoroscopy was provided for pain management therapy. Please refer to procedure report or details. Bilateral sacroiliac joint injections. Cumulative dose: Ka,r=23.66 mGy IMPRESSION: RADIATION DOSE DELIVERED:
[2021-10-28 10:46] VITALS: BP 150/88; PULSE 64; RESP 20; TEMP 36.6; O2SAT 96
[2021-10-28 11:33] VITALS: BP 158/68; PULSE 80; RESP 16; O2SAT 95
[2021-10-28] MEDS: Omnipaque 240 MG/ML 50 ML BTL IJ (11:34)
[2021-10-28] MEDS: methylPREDNISolone ACETATE 80 MG/ML VIAL IJ (11:35)
--- NOTE | 2021-10-28 11:35 | PDOC.PAIN_ITS ---
Pain Clinic Procedure Note Procedure Note Procedure Note: INTRA-ARTICULAR SI JOINT INJECTION Manasa Robles has been referred to the Pain Management Center for intra- articular SI joint injection. COMMENTS: She let me know that she is now on disability and no longer working. Her pre-procedure pain VAS was 8/10. Dx: Bilateral Sacroiliac joint Dysfunction Patient was interviewed and the medical record reviewed. There were no medical, pharmacologic, radiographic or other structural contraindications to attempting fluoroscopically guided intra-articular SI joint injection. Risks and expected side effects as well as potential benefit of the procedure were reviewed and vo iced concerns addressed. The printed consent form was signed and witnessed. Standard time-out procedure was performed. Patient was placed in the prone position on the fluoroscopy table and automated blood pressure cuff and pulse oximeter applied. The skin entry point for approaching bilateral SI joints was identified under the most advantageous fluoroscopic view and marked. Following thorough Chlorhexadine preparation of the skin and draping and 1% lidocaine infiltration of the skin entry point and subcutaneous tissues, a 22 gauge 3.5 spinal needle was placed under fluoroscopic guidance into bilateral SI joints was identified under the most advantageous fluoroscopic view and marked. Following thorough Intra-articular placement was confirmed by a clear arthrogram resulting from the injection of 0.25ml Omnipaque 240, 1ml 1% lidocaine, and 40mg Depomedrol (80 mg/cc) were injected intra-articularily with an initial reproduction of a significant component of the usual pain. The needle was flushed with 1 cc of 1% Lidocaine and removed. Vital signs were stable throughout the procedure and were as recorded in the docflowsheet by the nursing staff. If given, dosages of intravenous drugs for anxiolysis and analgesia were documented in MAR. Follow up plans and appointments were discussed with the patient. Post procedure instruction was given as documented in nursing documentation and having met discharge criteria, and was discharged from the Pain Management Center. COMMENTS: Post-procedure pain VAS was 4/10. Follow up as needed. She was encouraged to stay as active as possible. Alfie Gusman DO, MPH [facility]-Pain Management [facility]-Center for Pain Management CC: Yoandy Whaley
== END 2021-10-28 10:33 | disposition home or self-care (01) ==
LOC: PC 10:33
PROVIDERS: PCP Family Medicine; Visit Provider Preventive Medicine Occupational Medicine
DX: M53.3 Sacrococcygeal disorders, not elsewhere classified (principal)
CPT/HCPCS: 27096; 72200; J1040; Q9967

== ENCOUNTER 2022-04-19 16:15 | Outpatient (CLI) | payer MEDICARE, OTHER, SELFPAY ==
--- NOTE | 2022-04-19 13:30 | DI.MRI_ITS ---
Exam(s) MR LUMBAR SPINE WO EXAM: MR LUMBAR SPINE WO CLINICAL HISTORY: Worsening LBP with radiculopathy to lt big toe,m54.17. TECHNIQUE: Multiplanar multisequence MRI of the Lumbar spine was performed. COMPARISON: CR XR HIP LT COMPLETE AP PELVIS from 03/07/2020 MR MRI LUMBAR SPINE WO from 11/18/[address] ABDOMEN PELVIS W from 08/26/2021 FINDINGS: Bones: The last intervertebral disc space is designated the L5/S1 level for the numbering purpose of this examination. The vertebral body heights are well maintained. Alignment is satisfactory. The ma rrow signal characteristics are unremarkable. Posterior fusion hardware is again noted from L3 thro ugh S1. This creates mild artifact. Cord: The conus tip ends at the L1 level. It is of normal size and signal intensity. T12-L1: No disc herniations or bulges are present. No central spinal canal or neural foraminal stenos is. L1-2: Stable mild disc bulging.. No central spinal canal or neural foraminal stenosis. L2-3: Stable mild disc bulging. No central spinal canal or neural foraminal stenosis. L3-4: No disc herniations or bulges are present. No central spinal canal or neural foraminal stenosis . L4-5: Stable mild disc bulging.. No central spinal canal or neural foraminal stenosis. L5-S1: Stable appearance of small central disc protrusion. Mild to moderate right neural foraminal n arrowing. Left laminectomy defect. The visualized SI joints and sacrum are well maintained. Soft tissues: The paraspinal soft tissues are unremarkable. IMPRESSION: Stable postsurgical changes and mild multilevel disc bulging. Stable mild to moderate right neural f oraminal and L5-S1 DATA REPOSITORY:
== END 2022-04-19 16:35 ==
LOC: DI 16:16
PROVIDERS: PCP Family Medicine; Visit Provider Preventive Medicine Occupational Medicine
DX: M54.17 Radiculopathy, lumbosacral region (principal)
CPT/HCPCS: 72148

== ENCOUNTER 2022-05-13 09:01 | Outpatient (CLI) | payer MEDICARE, OTHER, SELFPAY ==
--- NOTE | 2022-05-13 06:00 | DI.RAD_ITS ---
Exam(s) XR PAIN CLINIC LUMBAR SP 2V EXAM: XR PAIN CLINIC LUMBAR SP 2V CLINICAL HISTORY: Dx: Lumbar Radiculopathy TECHNIQUE: 2D and realtime digital imaging was performed. Radiologist not present. CONTRAST MATERIAL: None. COMPARISON: No exams were available for comparison FINDINGS: Fluoroscopy was provided for pain management therapy. Please refer to procedure report or details. Cumulative dose: Ka,r=16.62 mGy IMPRESSION: RADIATION DOSE DELIVERED:
[2022-05-13 09:10] VITALS: BP 144/86; PULSE 77; RESP 20; TEMP 36.8; O2SAT 94
--- NOTE | 2022-05-13 09:53 | PDOC.PAIN_ITS ---
Date of service: 05/13/22 Time of Service: 09:53 Pain Clinic Procedure Note Procedure Note Procedure Note: PROCEDURE NOTE Transforaminal Epidural Steroid Injection with Fluoroscopic Guidance at Left L5 TFESI Chief Complaint: Patient has a history of instrumented lumbar fusion L3-5. left leg pain. Pre-operative diagnosis: Lumbosacral Radiculopathy Post-operative diagnosis: Same Pre-procedure pain: VAS= 5/10 Manasa Robles has been [facility]bar Transforaminal Epidural Steroid Injection Left L5 TFESI. If patient fails to obtain adequate pain relief from today's injection, then she would likely needs to consider neuromodulation such as SCS as the next therapeutic step. COMMENTS: Referring provider: Dr. Gusman Pre-procedure VAS: 5/10 to the left leg. Manasa Robles was greeted by the nurse who verified patients name and . Patient was then taken to the fluoroscopy suite. Manasa was interviewed and the medical record reviewed. There were no medical, pharmacologic, radiographic or other structural contraindications to attempting fluoroscopically guided transforaminal lumbar epidural steroid injection. The risks, benefits, and potential side effects were reviewed with the patient. Risk include, but not limited to, post dural puncture, headache, infection, nerve injury, allergic reaction, possible increase in symptoms over the ensuing 24 to 48 hours, and paralysis. The patient appeared to understand, questions were answered and the patient agreed to proceed. Once I obtained informed verbal consent, the printed consent form was signed by the patient and myself. Standard time-out procedure was performed. TECHNIQUE: After informed written consent was obtained the patient was placed in the prone position. The lumbar spine was prepped with chloraprep and draped. Sterile technique was observed during the entire procedure ( cap, gloves, and mask were worn). Vitals signs were monitored throughout the procedure. The left side was marked with a radiopaque marker. The skin and subcutaneous structures were anesthetized with lidocaine 1% to a total volume of 3 ML at each level. Under fluoroscopic guidance, in ipsilateral oblique view, co-axial approach, 22 gauge 3.5'' spinal needle(s) were advanced to the base of the L5. pedicle(s). The needle(s) were advanced to the superio-posterior aspect of the neural foramen under lateral view. Oblique and AP views were rechecked. Under AP view Omnipaque 240, 1 ml's was injected while visualized with fluoroscopy. There was no evidence of intravascular uptake, the epidural space was delineated. 15 mg Dexamethasone was injected after negative aspiration, at each level, followed by lidocaine 1% 1.0 ml at each level. (49 ml of Omnipaque was wasted) Outcome: The patient tolerated the procedure well and had stable vital signs. The patient noted after getting up after the procedure that their left leg pain was at a 1 out of 10 level. Follow up plans and appointments were discussed with Manasa . The patient was observed in the pain clinic and then discharged after having met discharge criteria to the care of a local truck driver. The patient received written instructions as documented in nursing records. Post-procedure pain: VAS= 1-2/10 Disposition: Manasa was discharged from the procedure suite without new neurological complaints. She initially reported pinching feeing localized to the left posterior knee, which dissipated when she got up and walked with her w alker. She was steady and exhibited equal lower extremity leg strength. Follow-up: Follow up with on PRN. I personally performed the entire procedure. Sil Dean MD ABPN-subspecialty board certification in Pain Medicine Attending Physician-Pain Management
[2022-05-13] MEDS: Dexamethasone Sod. Phos./Pres-Free 10 MG/ML VIAL IJ (10:05)
[2022-05-13] MEDS: Omnipaque 240 MG/ML 50 ML BTL IJ (10:09)
[2022-05-13 10:15] VITALS: BP 147/73; PULSE 75; RESP 15; O2SAT 95
== END 2022-05-13 09:02 | disposition home or self-care (01) ==
LOC: PC 09:01
PROVIDERS: PCP Family Medicine; Visit Provider Internal Medicine
DX: M54.17 Radiculopathy, lumbosacral region (principal); M54.50 Low back pain, unspecified
CPT/HCPCS: 64483; 72100; Q9967

== ENCOUNTER 2022-08-13 10:29 | Outpatient (CLI) | payer MEDICARE, OTHER, SELFPAY ==
--- NOTE | 2022-08-13 09:00 | DI.RAD_ITS ---
Exam(s) XR HIP LT COMPLETE AP PELVIS EXAM: XR HIP LT COMPLETE AP PELVIS INDICATION: HISTORY OF L MIKALA. COMPARISON: DX XR PELVIS AND HIP LAT LT from 11/02/2021 MR MR LOWER EXT ANY JOINT LT WWO CONTRAST from 11/10/2021 XR PAIN CLINIC LUMBAR SP 2V from 05/13/2022 TECHNIQUE: 2D digital imaging was performed. Three views. FINDINGS: There has been no change in the alignment left hip prosthesis. No suspicious bony lucencies. Hardwa re also noted in the lumbosacral spine. Mild degenerative changes present in the right hip. IMPRESSION: No acute abnormality. Stable appearance of left hip prosthesis. DATA REPOSITORY: RADIATION DOSE DELIVERED:
== END 2022-08-13 10:30 | disposition home or self-care (01) ==
LOC: DIORS 10:30
PROVIDERS: PCP Family Medicine; Referring Provider Family Medicine; Visit Provider Student in an Organized Health Care Education/Training Program
DX: Z96.642 Presence of left artificial hip joint (principal); M70.62 Trochanteric bursitis, left hip
CPT/HCPCS: 20610; 99214; 73502; J1040

== ENCOUNTER 2022-09-10 09:55 | Outpatient (CLI) | payer MEDICARE, OTHER, SELFPAY ==
--- NOTE | 2022-09-10 | DI.RAD_ITS ---
Exam(s) XR LUMBAR SPINE FLEX/EXT ONLY XR LUMBAR SPINE AP, LAT EXAM: XR LUMBAR SPINE FLEX/EXT ONLY CLINICAL HISTORY: S/P LUMBAR FUSION, ASSESS MOTION AT FUSION LEVELS, SPONDYLOLYSIS, M47.816. TECHNIQUE: 2D digital imaging was performed. Five views. Including flexion and extension lateral v iews. COMPARISON: MR MR LUMBAR SPINE WO from 04/19/2022 CR XR LUMBAR SPINE FLEX/EXT ONLY from 09/10/2022 CR XR LUMBAR SPINE AP, LAT from 09/10/2022 FINDINGS: Posterior fusion hardware is again noted spanning L4 through S1. There is no subluxation with flexio n or extension. Vertebral bodies are maintained. Endplate osteophytes are seen. No significant dis c space narrowing. Left hip prosthesis. IMPRESSION: Posterior fusion from L 4 through S1. No subluxation. DATA REPOSITORY: RADIATION DOSE DELIVERED:
--- NOTE | 2022-09-10 | DI.RAD_ITS ---
Exam(s) XR LUMBAR SPINE COMPLETE XR LUMBAR SPINE FLEX/EXT ONLY EXAM: XR LUMBAR SPINE FLEX/EXT ONLY CLINICAL HISTORY: S/P LUMBAR FUSION, ASSESS MOTION AT FUSION LEVELS, SPONDYLOLYSIS, M47.816. TECHNIQUE: 2D digital imaging was performed. Five views. Including flexion and extension lateral v iews. COMPARISON: MR MR LUMBAR SPINE WO from 04/19/2022 CR XR LUMBAR SPINE FLEX/EXT ONLY from 09/10/2022 CR XR LUMBAR SPINE AP, LAT from 09/10/2022 FINDINGS: Posterior fusion hardware is again noted spanning L4 through S1. There is no subluxation with flexio n or extension. Vertebral bodies are maintained. Endplate osteophytes are seen. No significant dis c space narrowing. Left hip prosthesis. IMPRESSION: Posterior fusion from L 4 through S1. No subluxation. DATA REPOSITORY: RADIATION DOSE DELIVERED:
== END 2022-09-10 10:15 ==
LOC: DI 09:56
PROVIDERS: PCP Family Medicine; Visit Provider Physician Assistant Medical
DX: M47.816 Spondylosis without myelopathy or radiculopathy, lumbar region (principal)
CPT/HCPCS: 72120; 72100; 72110

== ENCOUNTER 2023-05-19 20:26 | Outpatient (REF) | payer MEDICARE, OTHER, SELFPAY ==
[2023-05-19 20:18] LABS: Source Nasal/Nares
[2023-05-19 20:59] LABS: COVID-19 PCR Negative (Negative)
== END 2023-05-19 20:27 | disposition home or self-care (01) ==
LOC: LBN 20:26
PROVIDERS: PCP Family Medicine; Visit Provider Physician Assistant Medical
DX: R05.8 Other specified cough (principal); Z20.822 Contact with and (suspected) exposure to COVID-19
CPT/HCPCS: 87635

== ENCOUNTER 2023-11-03 01:05 | Outpatient (CLI) | payer MEDICARE, OTHER, SELFPAY ==
[2023-11-03 10:56] LABS: Magnesium 1.9 mg/dL (1.8-2.4)
[2023-11-03 11:14] LABS: FREE T4 0.79 ng/dL (0.76-1.46)
[2023-11-03 11:19] LABS: Hemoglobin A1C 6.9 % (<5.7)
[2023-11-03 23:05] LABS: T3,Free 3.7 pg/mL (2.8-5.3)
== END 2023-11-03 01:06 | disposition home or self-care (01) ==
LOC: LBO 01:05
PROVIDERS: PCP Family Medicine; Visit Provider Family Medicine
DX: E55.9 Vitamin D deficiency, unspecified (principal); I10 Essential (primary) hypertension; R80.9 Proteinuria, unspecified; E78.5 Hyperlipidemia, unspecified
CPT/HCPCS: 36415; 82306; 83036; 83735; 84439; 84481

== ENCOUNTER 2023-12-12 02:41 | Outpatient (CLI) | payer MEDICARE, OTHER, SELFPAY ==
[2023-12-12] MEDS: Levalbuterol HFA 15 GM INH 4 PUFF IH (12:10)
[2023-12-12] MEDS: Inhaler, Assist Device 1 EACH MC (12:10)
--- NOTE | 2023-12-13 09:56 | W.PFT ---
Date of service: 12/12/23 Time of Service: 10:20 Pulmonary Function Test Result Requesting Provider Yoandy Whaley Indications: COPD Impression Normal spirometry, lung volumes and diffusion. There is a trend of early obstruction and small airway disease based on low FEF25-7% Normal flow volume loop. Clinical Correlation therefore is recommended.
== END 2023-12-12 02:42 | disposition home or self-care (01) ==
LOC: RT 02:41
PROVIDERS: PCP Family Medicine; Visit Provider Family Medicine
DX: J44.9 Chronic obstructive pulmonary disease, unspecified (principal)
CPT/HCPCS: 00123; 94060; 94726; 94729

== ENCOUNTER → 2024-01-13 09:46 | Outpatient (BNVA) | payer MEDICARE, OTHER, SELFPAY | PROVIDERS: PCP Family Medicine; Referring Provider Family Medicine | DX: M70.62 Trochanteric bursitis, left hip (principal) | CPT/HCPCS: 20610; J1010 ==

== ENCOUNTER 2024-03-18 16:46 | Emergency (ER) | payer MEDICARE, OTHER, SELFPAY ==
--- NOTE | 2024-03-18 16:45 | RT.EKG_ITS ---
APPROVED REPORT Exam: Resting ECG Reason for Exam: abdominal pain Patient Location: E HR:96 bpm ECG Measurements Heart Rate 96 AXIS VT 193 P 51 QRSd 154 QRS -35 QT 394 T 1 QTc 499 Conclusion Sinus rhythm. 96 RBBB no stemi
--- NOTE | 2024-03-18 16:45 | DI.CT_ITS ---
Exam(s) CT ABDOMEN PELVIS W EXAM: CT ABDOMEN PELVIS W CLINICAL HISTORY: abdominal pain TECHNIQUE: Imaging Protocol: Axial computed tomography images with coronal and sagittal reformatted images were created and reviewed. CONTRAST MATERIAL: Intravenous: Omnipaque 350 Contrast volume:85 mL Oral: No COMPARISON: CT CT ABDOMEN PELVIS W from 08/26/2021 FINDINGS: ABDOMEN: Lung Bases: There is atelectasis in the lung bases. There is a small hiatal hernia. Surgical clips are again seen at the gastroesophageal junction. Liver: Normal density. No measurable mass. Portal, Superior Mesenteric, and Splenic Veins: Unremarkable. Gallbladder and Biliary Tract: Status post cholecystectomy. No significant biliary ductal dilatation . Pancreas: Normal density, no abnormal calcifications or inflammatory process. Spleen: Normal. Adrenals: No masses seen. Kidneys: Normal size, contour and axis. No radiodense stones or obstructive uropathy. No masses seen. Note is again made of a retroaortic left renal vein. Abdominal Aorta: Abdominal portion non-dilated. Mild atherosclerotic calcification. Bowel: There is bowel wall thickening seen in the proximal ascending colon with mild pericolonic infl ammatory changes. There is no evidence of bowel obstruction. No evidence of appendicitis. Peritoneal Cavity: No ascites, collection or mesenteric inflammatory response. No free air. Lymph Nodes: Within normal limits. Bones: Within normal limits for the patient's age. The patient has a left total hip replacement. Th ere are postsurgical changes of the lumbosacral spine. The changes extend from L4 to S1. Soft Tissues: Unremarkable. PELVIS: Bladder: Symmetric distention, no gross wall thickening. Reproductive Organs: Status post hysterectomy. Lymph Nodes: Within normal limits. Bones: Within normal limits for the patient's age. IMPRESSION: Findings of colitis involving the proximal ascending colon. RADIATION DOSE DELIVERED: 628.97mGy.cm Total DLP DATA REPOSITORY: All CT scans at this facility are submitted to the National Radiology Data Registry (NRDR) Dose Index Registry (DIR) with the [employer] (ACR). RADIATION OPTIMIZATION: All CT scans at this facility use at least one of these dose optimization te chniques: automated exposure control; mA and/or kV adjustment per patient size (includes targeted exa ms where dose is matched to clinical indication); or iterative reconstruction.
[2024-03-18 16:52] VITALS: BP 140/79; PULSE 110; RESP 16; O2SAT 93
[2024-03-18 16:55] VITALS: TEMP 36.6
--- NOTE | 2024-03-18 17:02 | W.ED.GENAD ---
Discharge Plan Disposition Patient Disposition: Home Condition: Stable Discharge Details Clinical Impression: Colitis, Abdominal pain, Hypokalemia Primary Care Provider: Yoandy Whaley ED Provider: Maria G Thacker Home Meds and New Rx's Prescriptions: New ondansetron 4 mg tablet,disintegrating 4 mg PO Q6H PRN (Reason: nausea and vomiting) Qty: 20 0RF No Action oxycodone 5 mg tablet 5 mg PO BID PRN levothyroxine 125 mcg tablet 125 mcg PO DAILY triamterene-hydrochlorothiazid 37.5-25 mg tablet 1 tab PO DAILY ondansetron 4 mg tablet,disintegrating 4 mg PO DAILY acetaminophen 500 mg capsule 500 mg PO Q6H PRN meclizine 25 mg tablet,chewable 25 mg PO DAILY PRN alpha lipoic acid 300 mg capsule 300 mg PO DAILY cannabidiol 30 ml PO TID cholecalciferol (vitamin D3) 1,250 mcg (50,000 unit) capsule 1,250 mcg PO QWEEK duloxetine 30 mg capsule,delayed release(DR/EC) 30 mg PO DAILY duloxetine 60 mg capsule,delayed release(DR/EC) 60 mg PO DAILY Eliquis 5 mg tablet 5 mg PO BID famotidine 40 mg tablet 40 mg PO BID ibuprofen [IBU] 800 mg tablet 800 mg PO TID letrozole 2.5 mg tablet 2.5 mg PO DAILY Patient Comments: magnesium L-lactate [Magtab] 84 mg tablet extended release 84 mg PO DAILY budesonide-formoterol [Symbicort] 160-4.5 mcg/actuation HFA aerosol inhaler 2 puff inhalation BID atorvastatin 10 mg tablet Discharge Instructions Instructions: Colitis (DC) Additional Instructions: stay on a liquid diet take tylenol as needed for pain .take zofran as needed for nausea. please follow up in surgery clinic for colonoscopy in 6-8 weeks if developing fever, severe pain, not tolerating anything by mouth, please return to the emergency department HPI General Date/Time Provider Initiated Documentation: 03/18/24 16:58. Limitations to Documentation: no limitations. Information obtained by: patient. HPI Narrative: 68-year-old female with past medical history including diabetes, breast cancer, hypertriglyceridemia presents for evaluation of generalized abdominal pain. She reports that this has been present for the last 2 days. Yesterday she had 7 episodes of soft stools. No blood. No vomiting though she has had a Martina fundoplication. She states that she feels very nauseated and has a decreased interest in appetite today. Today she has only had 3 episodes of soft stools. She reports severe epigastric and right upper quadrant abdominal pain. Pain has been constant. Does not radiate into her chest, not associated with any shortness of breath. Denies any increased urinary frequency or dysuria. Her surgical history includes cholecystectomy, hysterectomy, fundoplication Related Data Home Medications ?Medication ?Instructions ?Recorded ?Confirmed acetaminophen 500 mg capsule 500 mg PO Q6H PRN 07/10/21 03/18/24 alpha lipoic acid 300 mg capsule 300 mg PO DAILY 07/10/21 03/18/24 levothyroxine 125 mcg tablet 125 mcg PO DAILY 07/10/21 03/18/24 meclizine 25 mg chewable tablet 25 mg PO DAILY PRN 07/10/21 03/18/24 ondansetron 4 mg disintegrating 4 mg PO DAILY 07/10/21 03/18/24 tablet oxycodone 5 mg tablet 5 mg PO BID PRN 07/10/21 03/18/24 triamterene 37.5 1 tab PO DAILY 07/10/21 03/18/24 mg-hydrochlorothiazide 25 mg tablet apixaban 5 mg tablet (Eliquis) 5 mg PO BID 12/01/23 03/18/24 budesonide-formoterol HFA 160 2 puff inhalation BID 12/01/23 03/18/24 mcg-4.5 mcg/actuation aerosol inhaler (Symbicort) cannabidiol 30 ml PO TID 12/01/23 03/18/24 cholecalciferol (vitamin D3) 1,250 1,250 mcg PO QWEEK 12/01/23 03/18/24 mcg (50,000 unit) capsule duloxetine 30 mg capsule,delayed 30 mg PO DAILY 12/01/23 03/18/24 release duloxetine 60 mg capsule,delayed 60 mg PO DAILY 12/01/23 03/18/24 release famotidine 40 mg tablet 40 mg PO BID 12/01/23 03/18/24 ibuprofen 800 mg tablet (IBU) 800 mg PO TID 12/01/23 03/18/24 letrozole 2.5 mg tablet 2.5 mg PO DAILY 12/01/23 03/18/24 magnesium L-lactate 84 mg 84 mg PO DAILY 12/01/23 03/18/24 tablet,extended release (Magtab) atorvastatin 10 mg tablet mg 03/18/24 ondansetron 4 mg disintegrating 4 mg PO Q6H PRN nausea and 03/18/24 tablet vomiting #20 tabs Previous Rx's ?Medication ?Instructions ?Recorded ondansetron 4 mg disintegrating 4 mg PO Q6H PRN nausea and 03/18/24 tablet vomiting #20 tabs Allergies Allergy/AdvReac Type Severity Reaction Status Date / Time topiramate (From Topamax) Allergy Intermediate irritabilit Verified 03/18/24 17:07 y acetaminophen (From Vicodin) AdvReac Unknown Nausea and Verified 03/18/24 17:07 Vomiting gabapentin AdvReac Unknown Sleep Verified 03/18/24 17:07 Increase hydrocodone (From Vicodin) AdvReac Unknown Nausea and Verified 03/18/24 17:07 Vomiting lisinopril AdvReac Unknown Nausea Verified 03/18/24 17:07 pregabalin (From Lyrica) AdvReac Unknown Memory Loss Verified 03/18/24 17:07 General Stated Complaint: Abd Prob STEPHANIE: 3 Exam Narrative Exam Narrative: Review of Systems: All systems reviewed & are unremarkable except as noted in HPI and below Well-developed, no acute distress Afebrile NCAT Moist mucous membranes RRR no murmur Unlabored respiratory effort clear bilaterally No abdominal distention, significant epigastric and right upper quadrant tenderness and guarding, no CVA tenderness Course Vital Signs Vital signs: Vital Signs Pulse 110 H 03/18/24 16:52 Respiratory Rate 16 03/18/24 16:52 Blood Pressure 140/79 03/18/24 16:52 Pulse Oximetry 93 03/18/24 16:52 Temperature 36.6 C 03/18/24 16:55 Pulse 110 H 03/18/24 16:52 Respiratory Rate 16 03/18/24 16:52 Respiratory Effort Normal 03/18/24 16:55 Blood Pressure 140/79 03/18/24 16:52 Pulse Oximetry 93 03/18/24 16:52 Pain Level 5 03/18/24 16:52 Medical Decision Making Emergent evaluation of abdominal pain and increased bowel movements. Patient has significant tenderness on examination but is afebrile. Initial differential includes pancreatitis, acute hepatitis, at higher risk for bowel obstruction given multiple abdominal surgeries. Given age and comorbidities, also consider ACS and anginal equivalent of abdominal pain. Will get troponin and EKG. Lower suspicion for aortic pathology. Plan for pain control, antiemetic, lab work and CT imaging of the abdomen. Lab work reviewed. There is a mild leukocytosis of 12. No anemia. Potassium 3.2 this was repleted orally. Otherwise lipase and liver function is within normal limits. Troponin is not elevated this in combination with normal EKG, I do not feel this is cardiac etiology. Urinalysis not infected. CT imaging report reviewed: IMPRESSION: Findings suggestive of mild proximal ascending colitis. On reexamination, pain has resolved and patient is tolerating liquids by mouth. Given her symptoms symptoms, risk factors and examination, I do not feel hospitalization is indicated at this time. No indication for antibiotics per recent treatment guidelines. Recommend clear diet for the next week. Pain control with Tylenol. Provided with Zofran to take as needed. Strict return precautions advised. The patient has been referred to general surgery clinic for follow-up for colonoscopy in 6 to 8 weeks. All questions answered, patient is comfortable going home. Quality:[facility] Health Related Social Needs: No Data to Display PFSH All Active Problems (Updated 03/18/24 @ 19:04 by Maria G Thacker MD) Hypokalemia (Acute) Abdominal pain (Acute) Colitis (Acute) Trochanteric bursitis of left hip (Acute) DEPO MEDROL: 01/13/2024; 08/13/2022 Depressive disorder (Chronic) Lumbar radiculopathy (Acute) Chronic thoracic back pain (Acute) Hyperlipidemia (Acute) Malignant neoplasm of breast (Chronic) Hypertriglyceridemia (Acute) Lesion of breast (Acute) Diabetes mellitus (Chronic) Lumbosacral radiculopathy at L5 (Acute) Ilioinguinal neuralgia of left side (Acute) Sacroiliac joint dysfunction of both sides (Acute) Lumbosacral radiculitis (Acute) Lumbar post-laminectomy syndrome (Acute) Medical History Effusion of metatarsophalangeal (MTP) joint of great toe Hypercholesterolemia Depression Migraine History of smoking Hypothyroidism Pre-diabetes Spinal stenosis, lumbar Hot flashes Osteoarthritis Vitamin D deficiency COPD (chronic obstructive pulmonary disease) HTN (hypertension) DAREN (obstructive sleep apnea) Microalbuminuria Degenerative disc disease, cervical Carpal tunnel syndrome Idiopathic peripheral neuropathy UTI (urinary tract infection) Chronic pain Pain in joint, foot, left Spondylolisthesis, lumbar region Left hip pain Meralgia paresthetica of left side GERD (gastroesophageal reflux disease) Urinary frequency Urgency of urination Abdominal pain Frequent PVCs Lumbosacral radiculopathy Surgical History History of arthroscopy of right knee History of Martina fundoplication H/O: hysterectomy Hx of cholecystectomy H/O total hip arthroplasty Left History of total knee arthroplasty LEFT--2009 H/O spinal fusion L4-5 Family History Father No problems noted. 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
[2024-03-18 17:08] LABS: Abs Immature Grans 0.04 10^3/uL (0.0-0.06); Absolute Basophil Count 0.05 10^3/uL (0.0-0.2); Absolute Eosinophil Count 0.09 10^3/uL (0.0-0.7); Absolute Monocyte Count 0.66 10^3/uL (0.1-0.8); Absolute Neutrophil Count 10.27 10^3/uL (1.2-6.7); Basophils % 0.4 %; Eosinophils % 0.7 %; HCT 43.7 % (36.0-46.0); HGB 14.9 g/dL (11.2-15.7); Immature Grans % 0.3 %; Lymphocytes % 14.1 %; MCH 32.3 pg (27.0-33.0); MCHC 34.1 % (32.0-36.0); MCV 95 fL (80-95); MPV 10.2 fL (8.0-11.0); Monocytes % 5.1 %; Neutrophils % 79.4 %; Platelet Count 255 10^3/uL (130-400); RBC 4.62 10^6/uL (3.93-5.22); RDW-SD 41.7 fL; WBC 12.94 10^3/uL (4.4-10.8)
[2024-03-18 17:09] LABS: Absolute Lymphocyte Count 1.82 10^3/uL (1.2-3.4)
[2024-03-18] MEDS: FAMOTIDINE 20 MG in Normal Saline 100 ML 400 MG IVPB (17:25)
[2024-03-18] MEDS: Ondansetron 4 MG/2 ML VIAL IVP (17:25)
[2024-03-18] MEDS: Ketorolac 15 MG/ML VIAL 10 MG IVP (17:25)
[2024-03-18 17:27] LABS: ALT 34 U/L (14-59); AST 20 U/L (15-37); Albumin 3.6 g/dL (3.4-5.0); Alkaline Phosphatase 112 U/L (46-116); BUN 17 mg/dL (7-18); CO2 28.9 mmol/L (21.0-32.0); Calcium 10.4 mg/dL (8.5-10.1); Estimated GFR 61.75 (mL/min/1.73m2); Glucose 154 mg/dL (74-106); Lipase 28 U/L (16-77); Magnesium 2.1 mg/dL (1.8-2.4); Total Protein 7.8 g/dL (6.4-8.2); Troponin I 4 ng/L (<or=51)
[2024-03-18 17:38] LABS: Anion Gap 10.1 mmol/L (3-11); Chloride 100 mmol/L (98-107); Potassium 3.2 mmol/L (3.5-5.1); Sodium 139 mmol/L (136-145)
[2024-03-18] MEDS: Omnipaque 350 MG/ML 100 ML BTL IJ (17:38)
[2024-03-18] MEDS: Normal Saline - Diluent 50 ML VIAL IJ (17:39)
[2024-03-18 18:20] VITALS: BP 166/75; PULSE 93; RESP 17; O2SAT 95
--- NOTE | 2024-03-18 18:22 | DI.VRAD_ITS ---
PROCEDURE INFORMATION: Exam: CT Abdomen And Pelvis With Contrast Exam date and time: 03/18/2024 5:35 PM Age: 68 years old Clinical indication: Abdominal pain TECHNIQUE: Imaging protocol: Computed tomography of the abdomen and pelvis with contrast. COMPARISON: CT ABDOMEN PELVIS W 08/26/2021 1:23 PM FINDINGS: Lungs: Atelectatic changes in both lower lobes. Diaphragm: Small hiatal hernia. Liver: Normal. No mass. Gallbladder and biliary ducts: Post cholecystectomy. Pancreas: Normal. No ductal dilation. Spleen: Normal. No splenomegaly. Adrenal glands: Normal. No mass. Kidneys and ureters: Normal. No hydronephrosis. Stomach and bowel: There is mild fat stranding surrounding the proximal ascending colon and cecum. Diffuse fatty infiltration of the wall of the colon, from prior colitis. Appendix: No evidence of appendicitis. Intraperitoneal space: Unremarkable. No free air. No significant fluid collection. Vasculature: Vascular calcifications. Lymph nodes: Unremarkable. No enlarged lymph nodes. Urinary bladder: Unremarkable as visualized. Reproductive: Unremarkable as visualized. Bones/joints: Post left hip arthroplasty. Mild degenerative disease of bilateral sacroiliac joints. Post posterior L4-S1 instrumentation. No hardware complications. Soft tissues: Fat containing umbilical hernia. Fat containing umbilical hernia. IMPRESSION: Findings suggestive of mild proximal ascending colitis. Dictated and Authenticated by: Leonardo Hutchinson MD. Ordering:LUIS FELIPE Chu MD
[2024-03-18 18:26] LABS: Bilirubin Negative (Negative); Blood Negative (Negative); Clarity Clear (Clear); Glucose Negative (Negative); Ketones Negative (Negative); Leukocyte Esterase Negative (Negative); Nitrite Negative (Negative); Specific Gravity 1.015 (1.005-1.025); Urobilinogen 0.2 mg/dL (Up to 0.2)
[2024-03-18] MEDS: Potassium Chloride Liquid 20 MEQ PKT PO (18:52)
[2024-03-18 19:35] VITALS: BP 152/86; PULSE 86; RESP 14; TEMP 36.8; O2SAT 92
== END 2024-03-18 19:38 | disposition home or self-care (01) ==
PROVIDERS: Emergency Provider Emergency Medicine; PCP Family Medicine
DX: K52.9 Noninfective gastroenteritis and colitis, unspecified (principal); R10.9 Unspecified abdominal pain; E87.6 Hypokalemia; D72.829 Elevated white blood cell count, unspecified
CPT/HCPCS: 80053; 83690; 93005; 96365; 96375; 99285; 74177; 81003; 83735; 84484; 85025; 93010; 99284; J1885; J2405; J3490

== ENCOUNTER 2024-10-03 14:57 | Outpatient (CLI) | payer MEDICARE, OTHER, SELFPAY ==
--- NOTE | 2024-10-03 15:28 | DI.RAD_ITS ---
Exam(s) XR ELBOW RT COMPLETE EXAM: XR ELBOW RT COMPLETE CLINICAL HISTORY: PAIN RT ELBOW M25.521 ? HAIR-LINE FX. TECHNIQUE: 2D digital imaging was performed. Three views. COMPARISON: No exams were available for comparison FINDINGS: BONES: No acute fracture is present. No bony destructive lesion is seen. Spurring at the epicondyles . Spurring at the olecranon and coronoid process. JOINTS: The elbow is normally aligned. No joint effusion is seen. SOFT TISSUE: Normal. IMPRESSION: Mild degenerative changes. DATA REPOSITORY: RADIATION DOSE DELIVERED:
== END 2024-10-03 15:17 ==
LOC: DI 14:58
PROVIDERS: PCP Family Medicine; Visit Provider Family Medicine
DX: M25.521 Pain in right elbow (principal)
CPT/HCPCS: 73080

== ENCOUNTER → 2024-11-29 14:00 | Outpatient (BNVA) | payer MEDICARE, OTHER, SELFPAY | PROVIDERS: PCP Family Medicine; Referring Provider Family Medicine; Visit Provider Student in an Organized Health Care Education/Training Program | DX: G56.21 Lesion of ulnar nerve, right upper limb (principal); W01.0XXA Fall on same level from slipping, tripping and stumbling without subsequent striking against object, initial encounter; Y93.89 Activity, other specified; Y92.59 Other trade areas as the place of occurrence of the external cause | CPT/HCPCS: 99213 ==

== ENCOUNTER → 2025-02-27 15:09 | Outpatient (BNVA) | payer MEDICARE, OTHER, SELFPAY | PROVIDERS: PCP Family Medicine; Referring Provider Family Medicine; Visit Provider Psychiatry & Neurology Neurology | DX: G56.21 Lesion of ulnar nerve, right upper limb (principal); G56.01 Carpal tunnel syndrome, right upper limb; E11.9 Type 2 diabetes mellitus without complications | CPT/HCPCS: 95908 ==

== ENCOUNTER → 2025-03-04 09:16 | Outpatient (BNVA) | payer MEDICARE, OTHER, SELFPAY | PROVIDERS: PCP Family Medicine; Referring Provider Family Medicine; Visit Provider Student in an Organized Health Care Education/Training Program | DX: G56.21 Lesion of ulnar nerve, right upper limb (principal) | CPT/HCPCS: 99214 ==

== ENCOUNTER 2025-03-11 13:24 | Outpatient (CLI) | payer MEDICARE, OTHER, SELFPAY ==
[2025-03-11 15:26] LABS: ESR 9 mm/hr (0-30)
== END 2025-03-11 13:25 | disposition home or self-care (01) ==
LOC: LBO 13:26
PROVIDERS: PCP Family Medicine; Visit Provider Family Medicine
DX: M25.50 Pain in unspecified joint (principal)
CPT/HCPCS: 36415; 85652; 86200; 83036; 86038; 86431

== ENCOUNTER 2025-04-16 11:57 | Day surgery (SDC) | payer MEDICARE, OTHER, SELFPAY ==
[2025-04-16] VITALS (15 sets, daily range): BP systolic 132–149; BP diastolic 65–94; PULSE 68–85; RESP 7–20; TEMP 36–36.8; O2SAT 94–100; BMI 32.3
--- NOTE | 2025-04-16 07:36 | W.PM.DSUDISC ---
Date of service: 04/16/25 Discharge Plan Disposition Patient Disposition: Home Condition: Good Discharge Details Reason For Visit: Right cubital tunnel syndrome Attending Provider: Brad Hearn Primary Care Provider: Yoandy Whaley Home Meds and New Rx's Prescriptions: New hydrocodone-acetaminophen 5-325 mg tablet 1 tab PO Q6H PRN (Reason: pain) Qty: 12 0RF ondansetron 4 mg tablet,disintegrating 4 mg PO Q8H PRNQty: 12 0RF Continued levothyroxine 125 mcg tablet 125 mcg PO DAILY triamterene-hydrochlorothiazid 37.5-25 mg tablet 1 tab PO DAILY ondansetron 4 mg tablet,disintegrating 4 mg PO DAILY acetaminophen 500 mg capsule 500 mg PO Q6H PRN meclizine 25 mg tablet,chewable 25 mg PO DAILY PRN alpha lipoic acid 300 mg capsule 300 mg PO DAILY cannabidiol 30 ml PO TID cholecalciferol (vitamin D3) 1,250 mcg (50,000 unit) capsule 1,250 mcg PO QWEEK duloxetine 30 mg capsule,delayed release(DR/EC) 30 mg PO DAILY duloxetine 60 mg capsule,delayed release(DR/EC) 60 mg PO DAILY Eliquis 5 mg tablet 5 mg PO BID famotidine 40 mg tablet 40 mg PO BID letrozole 2.5 mg tablet 2.5 mg PO DAILY Patient Comments: magnesium L-lactate [Magtab] 84 mg tablet extended release 84 mg PO DAILY budesonide-formoterol [Symbicort] 160-4.5 mcg/actuation HFA aerosol inhaler 2 puff inhalation BID atorvastatin 10 mg tablet 10 mg PO DAILY ondansetron 4 mg tablet,disintegrating 4 mg PO Q6H PRN (Reason: nausea and vomiting) Qty: 20 0RF Ozempic 0.25 mg or 0.5 mg (2 mg/3 mL) pen injector 2 mg SUBCUT DIRECTED Changed ibuprofen [IBU] 800 mg tablet 800 mg PO TID PRNQty: 60 0RF Discontinued oxycodone 5 mg tablet 5 mg PO BID PRN Discharge Instructions Additional Instructions: Cubital Tunnel Decompression Discharge Instructions Activity: You should stay in the sling for the first 2 weeks. You may come out of the sling for gentle motion and hygiene but should largely remain in the sling to allow the incision site to heal. Gentle motion of the elbow, hand, wrist, and fingers is okay and encouraged after the first few days, but no repetitive activites nor heavy lifting. You may apply ice. Medications: - You should take Tylenol and Ibuprofen around the clock. - You have also been prescribed hydrocodone for more acute pain. You may take this with ondansetron to control nausea. Dressings: - The initial surgical dressing should stay in place for 3 days. It may then be removed and kept clean and dry. You should cover with a light gauze dressing. - You may shower after 3 days and get the wound wet. Follow-up: 10 days Stand Alone Forms: Anesthesia Discharge Inst., Taz Gonzalez (DSU), Portal Information Referrals: Brad Hearn MD [ [facility] STAFF PHYSICIAN, Orthopaedic Surgical] - 04/29/25 1:30 pm Equipment/Supplies: Sling Activity:: Elevate Remove Dressings/Wound Care:: 72 hours Shower/Bathe:: 72 hours Diet:: As Tolerated Discharge Orders Discharge Orders: Discharge Order (Routine); Ordered 04/16/25 Ordered By: Rosalva Brown
--- NOTE | 2025-04-16 11:32 | W.ANESPRE ---
General Info Date of Service Date Performed: 04/16/25 Height: 5 ft 5 in Weight: 87.997 kg Body Mass Index (BMI): 32.3 Surgical Procedure: Operation Date: 04/16/25 14:25 Proposed Procedure Side Surgeon p Cubital Tunnel Release Right Brad Hearn MD Meds Allergies and Home Medications Allergies Allergy/AdvReac Type Severity Reaction Status Date / Time topiramate (From Topamax) Allergy Intermediate irritabilit Verified 04/16/25 12:34 y acetaminophen (From Vicodin) AdvReac Unknown Nausea and Verified 04/16/25 12:34 Vomiting gabapentin AdvReac Unknown Sleep Verified 04/16/25 12:34 Increase hydrocodone (From Vicodin) AdvReac Unknown Nausea and Verified 04/16/25 12:34 Vomiting lisinopril AdvReac Unknown Nausea Verified 04/16/25 12:34 pregabalin (From Lyrica) AdvReac Unknown Memory Loss Verified 04/16/25 12:34 Home Medication ?Medication ?Instructions ?Recorded acetaminophen 500 mg capsule 500 mg PO Q6H PRN 07/10/21 alpha lipoic acid 300 mg capsule 300 mg PO DAILY 07/10/21 levothyroxine 125 mcg tablet 125 mcg PO DAILY 07/10/21 meclizine 25 mg chewable tablet 25 mg PO DAILY PRN 07/10/21 ondansetron 4 mg disintegrating 4 mg PO DAILY 07/10/21 tablet triamterene 37.5 1 tab PO DAILY 07/10/21 mg-hydrochlorothiazide 25 mg tablet apixaban 5 mg tablet (Eliquis) 5 mg PO BID 12/01/23 budesonide-formoterol HFA 160 2 puff inhalation BID 12/01/23 mcg-4.5 mcg/actuation aerosol inhaler (Symbicort) cannabidiol 30 ml PO TID 12/01/23 cholecalciferol (vitamin D3) 1,250 1,250 mcg PO QWEEK 12/01/23 mcg (50,000 unit) capsule duloxetine 30 mg capsule,delayed 30 mg PO DAILY 12/01/23 release duloxetine 60 mg capsule,delayed 60 mg PO DAILY 12/01/23 release famotidine 40 mg tablet 40 mg PO BID 12/01/23 letrozole 2.5 mg tablet 2.5 mg PO DAILY 12/01/23 magnesium L-lactate 84 mg 84 mg PO DAILY 12/01/23 tablet,extended release (Magtab) atorvastatin 10 mg tablet 10 mg PO DAILY 03/18/24 ondansetron 4 mg disintegrating 4 mg PO Q6H PRN nausea and 03/18/24 tablet vomiting #20 tabs semaglutide 0.25 mg or 0.5 mg (2 2 mg subcut DIRECTED 04/09/25 mg/3 mL) subcutaneous pen injector (Ozempic) hydrocodone 5 mg-acetaminophen 325 1 tab PO Q6H PRN pain #12 tabs 04/16/25 mg tablet ibuprofen 800 mg tablet (IBU) 800 mg PO TID PRN #60 tabs 04/16/25 ondansetron 4 mg disintegrating 4 mg PO Q8H PRN #12 tabs 04/16/25 tablet Current Visit Medications: Current Medications Generic Name Dose Route Start Last Admin Trade Name Freq PRN Reason Stop Dose Admin Acetaminophen 1,000 mg 04/16/25 06:00 Acetaminophen 500 Mg Tab PO 04/16/25 23:59 PREOP PADMINI Acetaminophen 650 mg 04/16/25 07:35 Acetaminophen 325 Mg Tab PO 05/16/25 07:34 Q4H PRN PRN Celecoxib 400 mg 04/16/25 06:00 Celecoxib 200 Mg Cap PO 04/16/25 23:59 PREOP PADMINI Ringer's Solution 1,000 mls @ 80 mls/hr 04/16/25 06:00 IV 04/16/25 23:59 INFUSION PADMINI Cefazolin Sodium/Dextrose 2 gm in 50 mls @ 100 mls/hr 04/16/25 06:00 Ancef Duplex IVPB 04/16/25 23:59 PREOP PADMINI Sodium Chloride 0 ml 04/16/25 06:00 Normal Saline Flush 10 Ml Syr IV 04/16/25 23:59 PRN PRN Sodium Chloride 0 ml 04/16/25 06:00 Normal Saline 10 Ml Vial IJ 04/16/25 23:59 DIRECTED PRN Sterile Water 0 ml 04/16/25 06:00 Water,Injection,Sterile 10 Ml Vial IJ 04/16/25 23:59 DIRECTED PRN PFSH Active Problems Active Problems: Problem Status Onset Code Right carpal tunnel syndrome Acute G56.01 Cubital tunnel syndrome on right Acute G56.21 Depressive disorder Chronic F32.A Lumbar radiculopathy Acute M54.16 Chronic thoracic back pain Acute M54.6, G89.29 Hyperlipidemia Acute E78.5 Malignant neoplasm of breast Chronic C50.919 Hypertriglyceridemia Acute E78.1 Lesion of breast Acute N64.9 Diabetes mellitus Chronic E11.9 Lumbar post-laminectomy syndrome Acute M96.1 Lumbosacral radiculitis Acute M54.17 Sacroiliac joint dysfunction of both sides Acute M53.3 Ilioinguinal neuralgia of left side Acute G57.92 Lumbosacral radiculopathy at L5 Acute M54.17 Trochanteric bursitis of left hip Acute M70.62 Medical History Medical History Hx pulmonary embolism on Eliquis for life per pt. 2021 Effusion of metatarsophalangeal (MTP) joint of great toe Hypercholesterolemia Depression Migraine History of smoking Hypothyroidism Pre-diabetes Spinal stenosis, lumbar Hot flashes Osteoarthritis Vitamin D deficiency COPD (chronic obstructive pulmonary disease) HTN (hypertension) DAREN (obstructive sleep apnea) Microalbuminuria Degenerative disc disease, cervical Carpal tunnel syndrome Idiopathic peripheral neuropathy UTI (urinary tract infection) Chronic pain Pain in joint, foot, left Spondylolisthesis, lumbar region Left hip pain Meralgia paresthetica of left side GERD (gastroesophageal reflux disease) Urinary frequency Urgency of urination Abdominal pain Frequent PVCs Lumbosacral radiculopathy Surgical History Surgical History History of arthroscopy of right knee History of Martina fundoplication H/O: hysterectomy Hx of cholecystectomy H/O total hip arthroplasty Left History of total knee arthroplasty LEFT--2009 H/O spinal fusion L4-5 Tobacco Smoking/Tobacco Use Status: Former Tobacco Use Alcohol Alcohol Intake: current Alcohol intake frequency: a few times a week Substance Use Substance use: Never Substance use type: does not use Vital Signs and Lab Results Vital Signs Most Recent Vital Signs in EMR: Temp Pulse Resp BP Pulse Ox 36 C L 85 20 149/94 H 95 04/16/25 12:09 04/16/25 12:09 04/16/25 12:09 04/16/25 12:09 04/16/25 12:09 Imaging and Studies Imaging and Studies Study information below may be from another EMR and interpreted by another provider. Please see original notes in EMR for more complete details. EKG Summary: 03/18/24 Conclusion Sinus rhythm. 96 RBBB no stemi Pulmonary Function Summary: Date of service: 12/12/23 Time of Service: 10:20 Pulmonary Function Test Result Requesting Provider Yoandy Whaley Indications: COPD Impression Normal spirometry, lung volumes and diffusion. There is a trend of early obstruction and small airway disease based on low FEF25-7% Normal flow volume loop. Clinical Correlation therefore is recommended. Anesthesia Assessment and Plan Anesthesia History Personal History: No History of Anesthesia Complications Family History: No Family History of Anesthesia Complications Exercise Tolerance Exercise Tolerance: Metabolic Equivalents>4 Pertinent Negatives Pertinent Negatives: No Symptoms of GERD, No Major Cardiovascular Symptoms or Complaints and No History of CVA/TIA Cardiac & Pulmonary Exam Cardiac Exam: Normal S1/S2 Heart Sounds Pulmonary Exam: Clear Bilateral Breath Sounds Implantable Cardiac Device Does patient have a Pacemaker or an ICD?: No Airway Exam Known Difficult Airway: No Mallampati Class: 2 Mouth Opening: Normal (> 3cm) Thyromental Distance: Greater than 3 cm Neck Range of Motion: Full ROM Neck Circumference: Normal Teeth Condition: Normal Dentition ASA Classification ASA Score: ASA 3 Emergency Case?: No NPO Status NPO Status: NPO Clears >2 hours, Solids >8 hours Anesthesia Plan Resuscitation Status: Full Code Anesthesia Technique: General Anesthesia Airway Planned: Natural Airway Monitors Used: Standard Monitors
[2025-04-16] MEDS: Celecoxib 200 MG CAP 400 MG PO (12:52)
[2025-04-16] MEDS: Acetaminophen 500 MG TAB 1000 MG PO (12:53)
[2025-04-16] MEDS: Lactated Ringers 1,000 ML 80 ML IV (13:00)
[2025-04-16] MEDS: ceFAZolin 2 GM/50 ML BAG IVPB (13:04)
[2025-04-16] MEDS: Bupivacaine 0.25% Pres-Free W/EPI 30 ML VIAL (13:20)
--- NOTE | 2025-04-16 14:46 | W.ANESPOSTOP ---
Postoperative Evaluation Date, Time and Location Date Performed: 04/16/25 Time Performed: 14:45 Patient Location: Day Surgery Unit Vital Signs Most Recent Imported Vital Signs: Most Recent Vital Signs Temp Pulse Resp BP Pulse Ox 36.8 C 70 16 144/67 H 96 04/16/25 14:18 04/16/25 14:18 04/16/25 14:18 04/16/25 14:18 04/16/25 14:18 Pain Score Most Recent Pain Score: Most Recent Pain Score Pain Level 0 04/16/25 14:18 Assessment Mental Status: Awake (Alert & Oriented to Patient Baseline) Airway and Respiratory Function: Patent airway with normal (patient baseline) respiratory exam Cardiovascular Function: Hemodynamically Stable Hydration Status: Adequately Hydrated Nausea & Vomiting: No Nausea or Vomiting Pain: Pt. Denies Any Pain Peripheral Nerve Block: Patient did not receive a nerve block
--- NOTE | 2025-04-16 16:09 | ROE_ITS ---
Operative Note Operative Note PRE-OP DIAGNOSIS: Right Cubital Tunnel Syndrome POST-OP DIAGNOSIS: same PROCEDURE: Side Cubital Tunnel Decompression SURGEON: Brad Hearn ANESTHESIA TYPE: General:No Airway Refer to Anesthesia Record ESTIMATED BLOOD LOSS: 0 PATHOLOGY: none sent TOURNIQUET TIME: 21 COMPLICATIONS: None Patient was transported to: PACU Patient's condition: stable Indications: Manasa is a 69 year old female who has had symptoms of cubital tunnel syndrome. Nonoperative treatment options had been trialed. Nerve conduction studies identified the cubital tunnel as the point of compression. Given failure of nonoperative treatments and persistent symptoms, I offered operative intervention. I reviewed the technical details of a cubital tunnel decompression with possible anterior subcutaneous transposition. I reviewed the risk of the procedure to include bleeding, infection, pain, stiffness, tendon instability, damage to the superficial radial nerve, and complete release. Despite these risks, the patient elected to proceed. Findings: There was a tightened cubital tunnel, mostly within the FCU muscle fascia. The ulnar nerve was release from the first motor branch distally through the [place] proximally. Procedure Description: Manasa was greeted in the preoperative holding area. Name and surgical site were confirmed. The history and physical was completed. The consent was reviewed the patient and signed. She was taken back to the operating room. The patient was placed in the supine positioned and a general anesthetic was administered. The right was then prepped with ChloraPrep and draped in a standard fashion after a nonsterile tourniquet was placed high up into the axilla of the arm. Prophylactic antibiotics in the form of cefazolin were administered. A timeout was performed for safe surgery. The surgical site was drawn on the skin as was the lateral epicondyle borders. The planned surgical field was anesthetized with 1% lidocaine with epinephrine. The limb was exsanguinated and the tourniquet was inflated where it stayed for 21 minutes. A 6 cm incision was made curvilinearly around the medial elbow. The skin was incised only. The deep tissue and subcutaneous fat was dissected with a tenotomy scissors trying to protect any branches of the medial antebrachial cutaneous nerve. Any branches that were identified were retracted out of the way. The ulnar nerve was palpated and identified. A small window into the cubital tunnel, sheath overlying the nerve, was created and the nerve was able to be palpated with the [place]. A Metzenbaum scissor was then used to open up the sheath starting with Giraldo's ligament. I then worked distal over the ulnar nerve releasing any constraints against the nerve all the way to the fascia of the FCU muscle belly. This muscle belly was bluntly all the way down to the first motor branch of the ulnar nerve and the overlying fascia was incised. Likewise starting there at the lateral epicondyle, I proceeded to work proximally to release any constraints over the ulnar nerve. This was taken all the way to the arcade of [place]. The medial intermuscular septum was also palpated and any sharp edges against the ulnar nerve were resected and released. After fully releasing the nerve it was inspected visually. I was also able to palpate the nerve fully and reach one finger up into the proximal and distal aspects to make sure there were no constraints against the nerve. A freer elevator was also used to slide easily against the ulnar nerve without any points of constriction. The arm was then taken through range of motion. The ulnar nerve did not sublux/dislocate out of its groove behind the medial epicondyle. Therefore, no transposition was performed. The tourniquet was then deflated. Any areas of bleeding were cauterized with bipolar electrocautery. The wound was thoroughly irrigated. The deep tissue was closed with a 3-0 Vicryl. The skin was closed with a 4-0 nylon. The wound was dressed with Xeroform, 4 x 4's, ABD, Kerlix and an Mani wrap. Mansaa was transferred back to the PACU in a stable condition. Date of Procedure: 04/16/25
== END 2025-04-16 15:45 | disposition home or self-care (01) ==
LOC: SUR 11:58
PROVIDERS: PCP Family Medicine; Visit Provider Student in an Organized Health Care Education/Training Program
PROC: (CPT 64718; principal; 2025-04-16 14:15)
DX: G56.21 Lesion of ulnar nerve, right upper limb (principal)
CPT/HCPCS: 64718; J0690; J1100; J2003; J2405; J2704; J3010

== ENCOUNTER → 2025-04-29 12:49 | Outpatient (BNVA) | payer MEDICARE, OTHER, SELFPAY | PROVIDERS: PCP Family Medicine; Referring Provider Family Medicine; Visit Provider Student in an Organized Health Care Education/Training Program | DX: Z47.89 Encounter for other orthopedic aftercare (principal); G56.21 Lesion of ulnar nerve, right upper limb | CPT/HCPCS: 99024 ==